=== PATIENT | male | born 1980 | race Caucasian/White ===

== ENCOUNTER 2018-02-21 18:17 | Emergency (ER) | payer SELFPAY ==
[2018-02-21 19:09] LABS: Absolute Lymphocytes (CBC) 2.6 K/uL (0.7-4.9); Absolute Monocytes 0.9 K/uL (0.1-1.3); Absolute Neutrophil 5.8 K/uL (1.8-8.0); Basophils % 0.5 % (0-1.3); Eosinophils % 0.3 % (0-4.4); Hematocrit 45.5 % (39.6-49.0); Lymphocytes % 28.1 % (15.3-44.8); MCH 30.9 pg (27.0-35.0); MCV 91.9 fL (80-100); MPV 9.1 fL (7.6-11.3); Monocytes % 9.1 % (3.3-12.3); RBC Red Blood Cell Count 4.95 M/uL (4.33-5.43)
[2018-02-21 19:15] LABS: Glucose Level 123 mg/dL (65-120)
[2018-02-21 19:16] LABS: Bicarbonate 31 mEq/L (21-31); Protime INR 1.28; Sodium Level 138 mEq/L (135-145)
[2018-02-21 19:17] LABS: ALT/SGPT 24 IU/L (10-60); AST/SGOT 24 IU/L (10-42); Albumin 4.9 g/dL (3.2-5.5); BUN Blood Urea Nitrogen 18 mg/dL (6-20); Bilirubin Total 0.6 mg/dL (0.3-1.2); Protein, Total 8.5 g/dL (6.0-8.3)
[2018-02-21] MEDS ORDERED: NA CHLORIDE 0.9% 1,000 ML ONE (19:20)
[2018-02-21 19:21] LABS: Alkaline Phosphatase 67 IU/L (42-121); Bilirubin Direct 0.1 mg/dL (0-0.2)
[2018-02-21 19:22] LABS: Alcohol Serum/Plasma < 10 mg/dl; Salicylates Level < 4.0 mg/dl (<30)
[2018-02-21 19:23] LABS: Barbiturates NEGATIVE; Benzodiazepines POSITIVE; Cocaine NEGATIVE; METHAMPHETAM NEGATIVE; Opiates POSITIVE; Phencyclidine NEGATIVE; THC Cannibis NEGATIVE
[2018-02-21 19:26] LABS: Urine Blood NEGATIVE (NEG); Urine Glucose NEGATIVE (NEG); Urine Protein 2+ (NEG); Urine Specific Gravity >1.030 (1.005-1.030); Urine pH 5.5 (5.0-7.0)
[2018-02-21] MEDS ORDERED: KCL 20 MEQ/100 mL IVPB 20 MEQ/100 ML BAG IV ONE (19:27)
[2018-02-21] MEDS ORDERED: POTASSIUM CL SA 10 MEQ TAB PO ONE (19:27)
--- NOTE | 2018-02-21 19:50 | RAD REPORT ---
EXAM DESCRIPTION: CT - Head Brain Wo Cont - 02/21/2018 7:38 pm CLINICAL HISTORY: Transient alteration of awareness. COMPARISON: None. TECHNIQUE: Axial 5 mm thick images of the head were obtained without IV contrast. All CT scans are performed using dose optimization technique as appropriate and may include automated exposure control or mA/KV adjustment according to patient size. FINDINGS: No intracranial hemorrhage, mass, edema or shift of mid-line structures. No acute infarcti on changes seen. No abnormal extra-axial fluid collections. Ventricles are normal. Mastoid air cells and visualized portions of the paranasal sinuses are clear. No acute bony findings. IMPRESSION: Negative non-contrast CT head examination.
--- NOTE | 2018-02-22 15:24 | EKG ---
Test Date: 2018-02-21 Test Time: 18:51:36 Er Nurse: KARLENE MEASUREMENT RESULTS: Intervals: Rate: 66 NC: 114 QRSD: 84 QT: 526 QTc: 551 [place]: P: 64 NC: 114 QRS: 52 T: 52 INTERPRETIVE STATEMENTS: Normal sinus rhythm Prolonged QT Abnormal ECG Compared to ECG 04/10/2016 17:17:20 Prolonged QT interval now present Electronically Signed On 02-22-18 15:23:23 CDT by Sanjay Sosa
--- NOTE | 2018-02-23 18:25 | EDPHYS ---
Physician Documentation [facility] Name: Som Clements Age: 37 yrs Sex: Male : 1980 Arrival Date: 02/21/2018 Time: 18:20 Bed 17 Private MD: None, None ED Physician Giacomo Khan HPI: 02/21 18:45 This 37 yrs old Male presents to ER via Ambulatory with complaints of Psych snw Problem, Suicidal Ideation. 18:45 The patient presents to the emergency department with depression, a history of a snw suicide gesture, suicide ideation, and the patient has a plan, to overdose with medications. Onset: The symptoms/episode began/occurred 1 week(s) ago, and became worse and became persistent. Past psychiatric history: Psychiatric medications include: has been on in the past but not for years, the patient has had a prior suicide gesture, where the patient took pills/meds, the patient has a previous inpatient psychiatric history, Selt[facility] wood? years ago, the patient's last psychiatric treatment was stopped meds weeks ago, pt states family has turned their backs on him until this improves. Associated signs and symptoms: Pertinent positives; anxiety, hallucinations, paranoia, suicide ideation. Severity of symptoms: At their worst the symptoms were moderate severe in the emergency department the symptoms are unchanged. The patient has experienced similar episodes in the past. The patient has not recently seen a physician. Long hx of auditory hallucinations and use of [facility]. Pt states he has not had visual hallucinations in the past. Historical: - Allergies: 18:27 NKDA; la1 - Home Meds: 18:32 unknown seizure med, has not taken in 3 weeks [Active]; hj - PMHx: 18:30 Bipolar disorder; bp - PSHx: 18:32 right knee; hj - Immunization history:: Adult Immunizations up to date. - Social history:: Smoking status: Patient/guardian denies using tobacco. ROS: 20:19 Constitutional: Negative for fever, chills, and weight loss, Eyes: Negative for injury, snw pain, redness, and discharge, ENT: Negative for injury, pain, and discharge, Neck: Negative for injury, pain, and swelling, Cardiovascular: Negative for chest pain, palpitations, and edema, Respiratory: Negative for shortness of breath, cough, wheezing, and pleuritic chest pain, Abdomen/GI: Negative for abdominal pain, nausea, vomiting, diarrhea, and constipation, Back: Negative for injury and pain, : Negative for injury, bleeding, discharge, and swelling, MS/Extremity: Negative for injury and deformity, Skin: Negative for injury, rash, and discoloration, Neuro: Negative for headache, weakness, numbness, tingling, and seizure. 20:19 Psych: Positive for auditory hallucinations, visual hallucinations, suicide gesture, suicidal ideation. Exam: 20:19 Constitutional: This is a well developed, well nourished patient who is awake, alert, snw and in no acute distress. Head/Face: Normocephalic, atraumatic. Eyes: Pupils equal round and reactive to light, extra-ocular motions intact. Lids and lashes normal. Conjunctiva and sclera are non-icteric and not injected. Cornea within normal limits. Periorbital areas with no swelling, redness, or edema. ENT: Nares patent. No nasal discharge, no septal abnormalities noted. Tympanic membranes are normal and external auditory canals are clear. Oropharynx with no redness, swelling, or masses, exudates, or evidence of obstruction, uvula midline. Mucous membranes moist. Neck: Trachea midline, no thyromegaly or masses palpated, and no cervical lymphadenopathy. Supple, full range of motion without nuchal rigidity, or vertebral point tenderness. No Meningismus. Chest/axilla: Normal chest wall appearance and motion. Nontender with no deformity. No lesions are appreciated. Cardiovascular: Regular rate and rhythm with a normal S1 and S2. No gallops, murmurs, or rubs. Normal PMI, no JVD. No pulse deficits. Respiratory: Lungs have equal breath sounds bilaterally, clear to auscultation and percussion. No rales, rhonchi or wheezes noted. No increased work of breathing, no retractions or nasal flaring. Abdomen/GI: Soft, non-tender, with normal bowel sounds. No distension or tympany. No guarding or rebound. No evidence of tenderness throughout. Back: No spinal tenderness. No costovertebral tenderness. Full range of motion. Skin: Warm, dry with normal turgor. Normal color with no rashes, no lesions, and no evidence of cellulitis. MS/ Extremity: Pulses equal, no cyanosis. Neurovascular intact. Full, normal range of motion. Neuro: Awake and alert, GCS 15, oriented to person, place, time, and situation. Cranial nerves II-XII grossly intact. Motor strength 5/5 in all extremities. Sensory grossly intact. Cerebellar exam normal. Normal gait. 20:19 Psych: Behavior/mood is cooperative, appropriate for age, Affect is calm, Oriented to person, place, time, Patient having thoughts of suicide. Plan for suicide is taking pills Judgement / Insight is impaired. Delusions/hallucinations are present and described as pt describes auditory and visual hallucinations. Vital Signs: 18:27 BP 121 / 90; Pulse 84; Resp 16; Temp 97.6; Pulse Ox 100% on R/A; Weight 72.57 kg; la1 Height 5 ft. 11 in. (180.34 cm); 02/22 00:00 BP 114 / 75; Pulse 55; Resp 14; Pulse Ox 100% ; bp 03:52 BP 114 / 66; Pulse 55; Resp 14; Pulse Ox 99% ; bp 07:14 BP 105 / 62; Pulse 65; Resp 18; Temp 97.7(O); Pulse Ox 100% on R/A; hj 11:19 BP 108 / 61; Pulse 64; Resp 18; Pulse Ox 100% on R/A; hj 15:00 BP 110 / 65; Pulse 67; Resp 18; Pulse Ox 100% on R/A; hj 17:41 BP 120 / 71; Pulse 64; Resp 18; Temp 98.1(TE); Pulse Ox 100% on R/A; hj 20:00 BP 110 / 70; Pulse 55; Resp 14; Pulse Ox 97% ; bp 14 00:00 BP 117 / 67; Pulse 58; Resp 16; Pulse Ox 95% ; vo1 04:17 BP 112 / 69; Pulse 55; Resp 14; Pulse Ox 97% ; bp 08:00 BP 107 / 60; Pulse 67; Resp 15; Temp 97.0(O); Pulse Ox 98% on R/A; mh5 12:00 BP 115 / 63; Pulse 61; Resp 12; Temp 97.0(O); Pulse Ox 97% on R/A; mh5 16:00 BP 116 / 75; Pulse 59; Resp 15; Temp 97.2(O); Pulse Ox 99% on R/A; mh5 02/21 18:27 Body Mass Index 22.32 (72.57 kg, 180.34 cm) la1 MDM: 02/21 18:33 Patient medically screened. regine 22:59 Data reviewed: vital signs, nurses notes. Data interpreted: Pulse oximetry: on room air snw is 100 %. Interpretation: normal. Counseling: I had a detailed discussion with the patient and/or guardian regarding: the historical points, exam findings, and any diagnostic results supporting the discharge/admit diagnosis, the presence of at least one elevated blood pressure reading (>120/80) during this emergency department visit. ED course: sleeping in no distress. Sitter at bedside. 02/22 02:27 Transition of care: After a detail discussion of the patient's case, care is snw transferred to Candido Marcus MD. 19:19 ED course: sleeping in no distress. snw 02/23 00:31 ED course: [facility] in to eval pt. snw 18:21 Physician consultation: Dr Kern was called at 18:00, was contacted at 18:00, regarding snw regarding transfer, [facility] Dr. Kern accepts pt in transfer post speaking with Dr. Khan. ED MD given report per me at 1820. Kindly states he will look for Mr. Clements. 02/21 18:34 Order name: Acetaminophen; Complete Time: 19:23 snw 02/21 18:34 Order name: Basic Metabolic Panel; Complete Time: 19:23 snw 02/21 18:34 Order name: CBC with Diff; Complete Time: 19:19 snw 02/21 18:34 Order name: ETOH Level; Complete Time: 19:23 snw 02/21 18:34 Order name: Hepatic Function; Complete Time: 19:23 snw 02/21 18:34 Order name: PT-INR; Complete Time: 19:19 snw 02/21 18:34 Order name: Ptt, Activated; Complete Time: 19:19 snw 02/21 18:34 Order name: Salicylate; Complete Time: 19:23 snw 02/21 18:34 Order name: Urine Drug Screen; Complete Time: 19:33 snw 02/21 19:17 Order name: Urine Dipstick--Ancillary (enter results); Complete Time: 19:33 rg2 02/21 19:19 Order name: CT Head Brain wo Cont; Complete Time: 19:53 snw 02/21 22:14 Order name: Potassium; Complete Time: 22:49 rg2 02/21 18:34 Order name: EKG; Complete Time: 18:34 snw 02/21 18:34 Order name: EKG - Nurse/Tech; Complete Time: 18:47 snw 02/21 18:34 Order name: IV Saline Lock; Complete Time: 18:44 snw 02/21 18:34 Order name: Labs collected and sent; Complete Time: 18:44 snw 02/21 18:34 Order name: Urine Dipstick-Ancillary (obtain specimen); Complete Time: 19:12 snw 02/22 07:40 Order name: Diet Regular; Complete Time: 07:40 02/23 07:04 Order name: Diet Regular; Complete Time: 07:04 2 02/23 10:11 Order name: Diet Regular; Complete Time: 10:11 5 02/23 14:41 Order name: Diet Regular; Complete Time: 14:42 5 02/23 16:03 Order name: Diet Regular; Complete Time: 16:04 5 Administered Medications: 02/21 19:23 Drug: NS 0.9% 1000 ml Route: IV; Rate: 1 bolus; Site: right antecubital; bp 19:32 Drug: Potassium Chloride 20 mEq Route: PO; bp 19:32 Follow up: Response: No adverse reaction bp 19:32 Drug: Potassium Chloride 20 mEq Route: IV; Rate: calculated rate; Site: right bp antecubital; Disposition: 02/24 08:58 Co-signature as Attending Physician, Giacomo Khan MD., cha Disposition: 02/23/18 18:24 Transfer ordered to [facility]. Diagnosis are Suicidal ideations, Suicide attempt. - Reason for transfer: Higher level of care. - Accepting physician is Dr. Kern. - Condition is Stable. - Problem is an acute exacerbation. - Symptoms are unchanged. Signatures: Dispatcher [employer] Giacomo Mosqueda MD MD cha Therrien, Shelly, CLUB STEWARD-C CLUB STEWARD-Csnw Chacho Estrada RN RN la1 Ashu Frazier RN RN hj Paris Rosales RN RN tw2 Vasquez Mcmillan RN RN bp Corrections: (The following items were deleted from the chart) 02/22 03:56 02/21 18:27 PMHx: Seizures; la1 bp 02/22 04:31 02/21 22:24 POTASSIUM+C.LAB.BRZ ordered. EDMS EDMS 02/23 18:47 18:24 02/23/2018 18:24 Transfer ordered to Psych Facility. Diagnosis is Suicidal tw2 ideations; Suicide attempt. Reason for transfer: Higher level of care. Accepting physician is Dr. Kern. Condition is Stable. Problem is an acute exacerbation. Symptoms are unchanged. snw
--- NOTE | 2018-02-23 18:25 | ER ---
Nurse's Notes [facility] Name: Som Clements Age: 37 yrs Sex: Male : 1980 Arrival Date: 02/21/2018 Time: 18:20 Bed 17 Private MD: None, None Diagnosis: Suicidal ideations;Suicide attempt Presentation: 02/21 18:25 Presenting complaint: Patient states: I am a patient of [facility] and I have been having a la1 bad month, I tried to kill myself 3 times this week, last night I took 200 benadryl and this week I have probably taken 500 of them. Pt reports visual and auditory hallucinations. Presenting complaint:. Transition of care: patient was not received from another setting of care. Onset of symptoms was February 21, 2018. Initial Sepsis Screen: Does the patient meet any 2 criteria? No. Patient's initial sepsis screen is negative. Does the patient have a suspected source of infection? No. Patient's initial sepsis screen is negative. Care prior to arrival: None. 18:25 Method Of Arrival: Ambulatory la1 18:25 Acuity: TA 2 la1 Triage Assessment: 18:31 General: Appears in no apparent distress. uncomfortable, Behavior is calm, cooperative, hj appropriate for age. Pain: Denies pain. Historical: - Allergies: 18:27 NKDA; la1 - Home Meds: 18:32 unknown seizure med, has not taken in 3 weeks [Active]; hj - PMHx: 18:30 Bipolar disorder; bp - PSHx: 18:32 right knee; hj - Immunization history:: Adult Immunizations up to date. - Social history:: Smoking status: Patient/guardian denies using tobacco. Screenin:31 Abuse screen: Denies threats or abuse. Denies injuries from another. Nutritional hj screening: No deficits noted. Tuberculosis screening: No symptoms or risk factors identified. Fall Risk None identified. Assessment: 18:34 General: Appears in no apparent distress. uncomfortable, Behavior is calm, cooperative, hj appropriate for age. General: Reports auditory and visual hallucinations; my neighbors says "i am talking to braiding machine tender which are not really present at 2:30am, at one point im thinking about trying to hurt others, because my family doesn't want to talk to me because of my mental condition:. Pain: Denies pain. Neuro: Level of Consciousness is awake, alert, obeys commands, Oriented to person, place, time, situation, Appropriate for age. Cardiovascular: Capillary refill < 3 seconds Patient's skin is warm and dry. Respiratory: Airway is patent Respiratory effort is even, unlabored, Respiratory pattern is regular, symmetrical. GI: No signs and/or symptoms were reported involving the gastrointestinal system. : No signs and/or symptoms were reported regarding the genitourinary system. EENT: Derm: Musculoskeletal: No signs and/or symptoms reported regarding the musculoskeletal system. 18:51 Reassessment: tried calling position control [phone]: spoke with Crystal; with pt hj history of seizure, take EKG, watch for wide QRS, and if the QRS is wider than 100, give Bicarb and fluids; do the tox screen and poison control will call back in few hours; case #: [id number];. 19:00 Reassessment: RECD REPORT FROM AIDEN CULLEN. 37YO WM P/W SI AND SUPPOSED DIPHENHYDRAMINE bp OD. PT ASSERTS THAT HE HAS TAKEN >600 TABLETS OF BENADRYL OVER THE LAST WEEK A SUICIDAL GESTURE. SR WITH NORMAL QRS NOTED ON EKG. SITTER AT B/S, POISON CONTROL CONTACTED BY PREVIOUS SHIFT. 19:33 Reassessment: PT TO CT WITH SITTER AND HAT BRIM CURLER. bp 21:00 Reassessment: SITTER AT B/S, REPEAT K LEVEL PENDING. PT RESTING QUIETLY. bp 23:00 Reassessment: PT RESTING QUIETLY, MEDICALLY CLEARED. INPATIENT PSYCH TRANSFER PENDING. bp 02/22 00:01 Reassessment: PT RESTING QUIETLY, SITTER AT B/S. PSYCH PLACEMENT PENDING. bp 02:05 Reassessment: PT SLEEPING, SITTER AT B/S. PSYCH TRANSFER REMAINS IN PROCESS. bp 03:51 Reassessment: PT SLEEPING. NO APPARENT DISTRESS. SITTER AT B/S. PSYCH TRANSFER STILL IN bp PROCESS. 07:06 General: Appears in no apparent distress. comfortable, Behavior is calm, cooperative, hj appropriate for age. Pain: Denies pain. Neuro: Level of Consciousness is awake, alert, obeys commands, Oriented to person, place, time, situation, Appropriate for age. Cardiovascular: Capillary refill < 3 seconds Patient's skin is warm and dry. Respiratory: Airway is patent Respiratory effort is even, unlabored, Respiratory pattern is regular, symmetrical. GI: No signs and/or symptoms were reported involving the gastrointestinal system. : No signs and/or symptoms were reported regarding the genitourinary system. EENT: No signs and/or symptoms were reported regarding the EENT system. Derm: No signs and/or symptoms reported regarding the dermatologic system. Musculoskeletal: No signs and/or symptoms reported regarding the musculoskeletal system. 09:08 Reassessment: resting comfortably, provided breakfast tray; no other concerns;. hj 16:00 Reassessment: assisted to the bathroom;. hj 16:59 Reassessment: [facility] reports no beds at this time. iw 18:53 Reassessment: Patient and/or family updated on plan of care and expected duration. Pain hj level reassessed. Patient is alert, oriented x 3, equal unlabored respirations, skin warm/dry/pink. no further concerns;. 19:00 Reassessment: RECD REPORT FROM AIDEN CULLEN. 37YO WM P/W SI AND ALLEGED INGESTION. PT bp MEDICALLY CLEARED. NO CURRENT ORDERS. SITTER AT B/S. 02/23 00:15 Reassessment: PT RESTING QUIETLY, SITTER AT B/S. NO FURTHER ORDERS OR MEDICAL NEEDS AT bp THIS TIME. 00:31 Reassessment: [employer] [facility] SCRE[facility] AT B/S. bp 01:07 Reassessment: [facility] SCREENING COMPLETED. PT FAMILIAR WITH [facility], CHRONIC H/O bp SUICIDAL IDEATION WHEN HOMELESS. PT NOW ADMITTING RECENT RELEASE FROM INCARCERATION AND CURRENT STATE OF HOMELESSNESS. PT AGITATED WITH [employer] COAST SCREENER'S INABILITY TO FIND HIM A CONVENIENT LIVING ARRANGEMENT, STATING THIS PRIMARY MOTIVATION. 04:20 Reassessment: PT SLEEPING, NO ACUTE FINDINGS AT THIS TIME. bp 07:00 Reassessment: Patient appears in no apparent distress at this time. Patient and/or tw2 family updated on plan of care and expected duration. Pain level reassessed. Patient is alert, oriented x 3, equal unlabored respirations, skin warm/dry/pink. see observation notes. 08:00 Reassessment: Patient appears in no apparent distress at this time. Patient and/or tw2 family updated on plan of care and expected duration. Pain level reassessed. Patient is alert, oriented x 3, equal unlabored respirations, skin warm/dry/pink. 09:00 Reassessment: Patient appears in no apparent distress at this time. Patient and/or tw2 family updated on plan of care and expected duration. Pain level reassessed. Patient is alert, oriented x 3, equal unlabored respirations, skin warm/dry/pink. 09:59 Reassessment: Patient appears in no apparent distress at this time. Patient and/or tw2 family updated on plan of care and expected duration. Pain level reassessed. Patient is alert, oriented x 3, equal unlabored respirations, skin warm/dry/pink. 11:00 Reassessment: Patient appears in no apparent distress at this time. Patient is alert, tw2 oriented x 3, equal unlabored respirations, skin warm/dry/pink. 12:00 Reassessment: Patient appears in no apparent distress at this time. Patient and/or tw2 family updated on plan of care and expected duration. Pain level reassessed. Patient is alert, oriented x 3, equal unlabored respirations, skin warm/dry/pink. 13:00 Reassessment: Patient appears in no apparent distress at this time. Patient and/or tw2 family updated on plan of care and expected duration. Pain level reassessed. Patient is alert, oriented x 3, equal unlabored respirations, skin warm/dry/pink. 14:01 Reassessment: Patient appears in no apparent distress at this time. Patient and/or tw2 family updated on plan of care and expected duration. Pain level reassessed. Patient is alert, oriented x 3, equal unlabored respirations, skin warm/dry/pink. 15:00 Reassessment: Patient appears in no apparent distress at this time. Patient and/or tw2 family updated on plan of care and expected duration. Pain level reassessed. Patient is alert, oriented x 3, equal unlabored respirations, skin warm/dry/pink. 16:00 Reassessment: Patient appears in no apparent distress at this time. Patient and/or tw2 family updated on plan of care and expected duration. Pain level reassessed. Patient is alert, oriented x 3, equal unlabored respirations, skin warm/dry/pink. 17:00 Reassessment: Patient appears in no apparent distress at this time. Patient and/or tw2 family updated on plan of care and expected duration. Pain level reassessed. Patient is alert, oriented x 3, equal unlabored respirations, skin warm/dry/pink. 18:00 Reassessment: Patient appears in no apparent distress at this time. Patient and/or tw2 family updated on plan of care and expected duration. Pain level reassessed. Patient is alert, oriented x 3, equal unlabored respirations, skin warm/dry/pink. 18:45 Reassessment: Patient appears in no apparent distress at this time. Patient and/or tw2 family updated on plan of care and expected duration. Pain level reassessed. Patient is alert, oriented x 3, equal unlabored respirations, skin warm/dry/pink. Psych: 02/21 18:27 Subjective: Patient's mood is sad, Delusions are persecutory, Hallucinations are la1 auditory, visual, Having thoughts of suicide. Objective: Patient is cooperative, Speech is normal. Interventions: Removed personal items and placed in bag. Suicide Risk Assessment: Sad Person Scale: Sex of patient: Male: Score 1 point. Age of patient: Score 0 point if patient falls outside of specified age parameters. Depression: Score 1 point if signs of depression are present. Previous Attempt: Score 1 point if patient has previously attempted suicide. Substance Abuse: Score 0 point if patient does not abuse alcohol or drugs. Rational Thinking: Score 1 point if patient is lacking rational thinking. Social Support: Score 1 point if social support is lacking and/or unavailable. Organized Plan: Score 1 point if patient had a plan in place. Relationship: Score 1 point if patient is , , , or for a single male Chronic Sickness: Score 1 point if patient has illness, chronic, debilitating, or severe. TOTAL POINTS: If total points are 7-10, the proposed clinical action is to hospitalize or commit. Implement suicide precautions. Safety Checks: Personal items have been removed. Door is open. No visitors are present at this time. Pt denies substance abuse. Commitment: Patient will be a voluntary commitment. 19:00 Safety Checks: Personal items have been removed. Door is open. No visitors are present bp at this time. 19:15 Safety Checks: Personal items have been removed. Door is open. No visitors are present bp at this time. 19:30 Safety Checks: Personal items have been removed. Door is open. No visitors are present bp at this time. 19:45 Safety Checks: Personal items have been removed. Door is open. No visitors are present bp at this time. 20:00 Safety Checks: Personal items have been removed. Door is open. No visitors are present bp at this time. 20:15 Safety Checks: Personal items have been removed. Door is open. No visitors are present bp at this time. 20:30 Safety Checks: Personal items have been removed. Door is open. No visitors are present bp at this time. 20:45 Safety Checks: Personal items have been removed. Door is open. No visitors are present bp at this time. 21:00 Safety Checks: Personal items have been removed. Door is open. No visitors are present bp at this time. 21:15 Safety Checks: Personal items have been removed. Door is open. No visitors are present bp at this time. 21:30 Safety Checks: Personal items have been removed. Door is open. No visitors are present bp at this time. 21:45 Safety Checks: Personal items have been removed. Door is open. No visitors are present bp at this time. 22:00 Safety Checks: Personal items have been removed. Door is open. No visitors are present bp at this time. 22:15 Safety Checks: Personal items have been removed. Door is open. No visitors are present bp at this time. 22:30 Safety Checks: Personal items have been removed. Door is open. No visitors are present bp at this time. 22:45 Safety Checks: Personal items have been removed. Door is open. No visitors are present bp at this time. 23:00 Safety Checks: Personal items have been removed. Door is open. No visitors are present bp at this time. 23:15 Safety Checks: Personal items have been removed. Door is open. No visitors are present bp at this time. 23:30 Safety Checks: Personal items have been removed. Door is open. No visitors are present bp at this time. 23:45 Safety Checks: Personal items have been removed. Door is open. No visitors are present bp at this time. 02/22 00:00 Safety Checks: Personal items have been removed. Door is open. No visitors are present bp at this time. 00:15 Safety Checks: Personal items have been removed. Door is open. No visitors are present bp at this time. 00:30 Safety Checks: Personal items have been removed. Door is open. No visitors are present bp at this time. 00:45 Safety Checks: Personal items have been removed. Door is open. No visitors are present bp at this time. 01:00 Safety Checks: Personal items have been removed. Door is open. No visitors are present bp at this time. 01:15 Safety Checks: Personal items have been removed. Door is open. No visitors are present bp at this time. 01:30 Safety Checks: Personal items have been removed. Door is open. No visitors are present bp at this time. 01:45 Safety Checks: Personal items have been removed. Door is open. No visitors are present bp at this time. 02:00 Safety Checks: Personal items have been removed. Door is open. No visitors are present bp at this time. 02:15 Safety Checks: Personal items have been removed. Door is open. No visitors are present bp at this time. 02:30 Safety Checks: Personal items have been removed. Door is open. No visitors are present bp at this time. 02:45 Safety Checks: Personal items have been removed. Door is open. No visitors are present bp at this time. 03:00 Safety Checks: Personal items have been removed. Door is open. No visitors are present bp at this time. 03:15 Safety Checks: Personal items have been removed. Door is open. No visitors are present bp at this time. 03:30 Safety Checks: Personal items have been removed. Door is open. No visitors are present bp at this time. 03:45 Safety Checks: Personal items have been removed. Door is open. No visitors are present bp at this time. 04:00 Safety Checks: Personal items have been removed. Door is open. No visitors are present bp at this time. 04:15 Safety Checks: Personal items have been removed. Door is open. No visitors are present bp at this time. 04:30 Safety Checks: Personal items have been removed. Door is open. No visitors are present bp at this time. 04:45 Safety Checks: Personal items have been removed. Door is open. No visitors are present bp at this time. 05:00 Safety Checks: Personal items have been removed. Door is open. No visitors are present bp at this time. 05:15 Safety Checks: Personal items have been removed. Door is open. No visitors are present bp at this time. 05:30 Safety Checks: Personal items have been removed. Door is open. No visitors are present bp at this time. 05:45 Safety Checks: Personal items have been removed. Door is open. No visitors are present bp at this time. 06:00 Safety Checks: Personal items have been removed. Door is open. No visitors are present bp at this time. 06:15 Safety Checks: Personal items have been removed. Door is open. No visitors are present bp at this time. 06:30 Safety Checks: Personal items have been removed. Door is open. No visitors are present bp at this time. 06:45 Safety Checks: Personal items have been removed. Door is open. No visitors are present bp at this time. 07:00 Safety Checks: Personal items have been removed. Door is open. No visitors are present bp at this time. Vital Signs: 02/21 18:27 BP 121 / 90; Pulse 84; Resp 16; Temp 97.6; Pulse Ox 100% on R/A; Weight 72.57 kg; la1 Height 5 ft. 11 in. (180.34 cm); 02/22 00:00 BP 114 / 75; Pulse 55; Resp 14; Pulse Ox 100% ; bp 03:52 BP 114 / 66; Pulse 55; Resp 14; Pulse Ox 99% ; bp 07:14 BP 105 / 62; Pulse 65; Resp 18; Temp 97.7(O); Pulse Ox 100% on R/A; hj 11:19 BP 108 / 61; Pulse 64; Resp 18; Pulse Ox 100% on R/A; hj 15:00 BP 110 / 65; Pulse 67; Resp 18; Pulse Ox 100% on R/A; hj 17:41 BP 120 / 71; Pulse 64; Resp 18; Temp 98.1(TE); Pulse Ox 100% on R/A; hj 20:00 BP 110 / 70; Pulse 55; Resp 14; Pulse Ox 97% ; bp 0514 00:00 BP 117 / 67; Pulse 58; Resp 16; Pulse Ox 95% ; vo1 04:17 BP 112 / 69; Pulse 55; Resp 14; Pulse Ox 97% ; bp 08:00 BP 107 / 60; Pulse 67; Resp 15; Temp 97.0(O); Pulse Ox 98% on R/A; mh5 12:00 BP 115 / 63; Pulse 61; Resp 12; Temp 97.0(O); Pulse Ox 97% on R/A; mh5 16:00 BP 116 / 75; Pulse 59; Resp 15; Temp 97.2(O); Pulse Ox 99% on R/A; mh5 02/21 18:27 Body Mass Index 22.32 (72.57 kg, 180.34 cm) la1 ED Course: 02/21 18:20 Patient arrived in ED. mr 18:20 None, None is Private Physician. mr 18:27 Triage completed. la1 18:27 Arm band placed on left wrist. la1 18:30 Aiden Frazier RN is Primary Nurse. hj 18:32 Patient has correct armband on for positive identification. Placed in gown. Bed in low hj position. Call light in reach. Side rails up X 1. 18:33 Odalis Doherty [facility]-C [facility]. snw 18:33 Giacomo Khan MD is Attending Physician. snw 18:33 Safety Checks: Personal items have been removed personal item at nurses station; The hj door is open or patient has been placed in a hallway bed/chair. There are no family/friend visitors at this time. 18:45 Initial lab(s) drawn, by me, sent to lab. Inserted saline lock: 20 gauge in right hj antecubital area, using aseptic technique. Blood collected. 18:51 EKG done, by ED staff, reviewed by Odalis MURRAY. eb 19:07 Primary Nurse role handed off by Aiden Frazier RN bp 19:07 Vasquez Mcmillan, SUBHASH is Primary Nurse. bp 19:09 Urine collected: clean catch specimen. eb 19:38 CT Head Brain wo Cont In Process Unspecified. EDMS 02/22 06:58 Attending Physician role handed off by Giacomo Khan MD va 06:58 Sang Verde MD is Attending Physician. wa 07:00 Safety Checks: Personal items have been removed The door is open or patient has been hj placed in a hallway bed/chair. There are no family/friend visitors at this time. 07:15 Safety Checks: Personal items have been removed The door is open or patient has been hj placed in a hallway bed/chair. There are no family/friend visitors at this time. 07:30 Safety Checks: Personal items have been removed The door is open or patient has been hj placed in a hallway bed/chair. There are no family/friend visitors at this time. 07:45 Safety Checks: Personal items have been removed The door is open or patient has been hj placed in a hallway bed/chair. There are no family/friend visitors at this time. 08:00 Safety Checks: Personal items have been removed The door is open or patient has been hj placed in a hallway bed/chair. There are no family/friend visitors at this time. 08:15 Safety Checks: Personal items have been removed The door is open or patient has been hj placed in a hallway bed/chair. There are no family/friend visitors at this time. 08:30 Safety Checks: Personal items have been removed The door is open or patient has been hj placed in a hallway bed/chair. There are no family/friend visitors at this time. 08:45 Safety Checks: Personal items have been removed The door is open or patient has been hj placed in a hallway bed/chair. There are no family/friend visitors at this time. 09:00 Safety Checks: Personal items have been removed The door is open or patient has been hj placed in a hallway bed/chair. There are no family/friend visitors at this time. 09:15 Safety Checks: Personal items have been removed The door is open or patient has been hj placed in a hallway bed/chair. There are no family/friend visitors at this time. 09:30 Safety Checks: Personal items have been removed The door is open or patient has been hj placed in a hallway bed/chair. There are no family/friend visitors at this time. 09:45 Safety Checks: Personal items have been removed The door is open or patient has been hj placed in a hallway bed/chair. There are no family/friend visitors at this time. 10:00 Safety Checks: Personal items have been removed The door is open or patient has been hj placed in a hallway bed/chair. There are no family/friend visitors at this time. 10:15 Safety Checks: Personal items have been removed The door is open or patient has been hj placed in a hallway bed/chair. There are no family/friend visitors at this time. 10:30 Safety Checks: Personal items have been removed The door is open or patient has been hj placed in a hallway bed/chair. There are no family/friend visitors at this time. 10:45 Safety Checks: Personal items have been removed The door is open or patient has been hj placed in a hallway bed/chair. There are no family/friend visitors at this time. 11:00 Safety Checks: Personal items have been removed The door is open or patient has been hj placed in a hallway bed/chair. There are no family/friend visitors at this time. 11:15 Safety Checks: Personal items have been removed The door is open or patient has been hj placed in a hallway bed/chair. There are no family/friend visitors at this time. 11:30 Safety Checks: Personal items have been removed The door is open or patient has been hj placed in a hallway bed/chair. There are no family/friend visitors at this time. 12:00 Safety Checks: Personal items have been removed The door is open or patient has been hj placed in a hallway bed/chair. There are no family/friend visitors at this time. 12:15 Safety Checks: Personal items have been removed The door is open or patient has been hj placed in a hallway bed/chair. There are no family/friend visitors at this time. 12:30 Safety Checks: Personal items have been removed The door is open or patient has been hj placed in a hallway bed/chair. There are no family/friend visitors at this time. 12:45 Safety Checks: Personal items have been removed The door is open or patient has been hj placed in a hallway bed/chair. There are no family/friend visitors at this time. 13:00 Safety Checks: Personal items have been removed The door is open or patient has been hj placed in a hallway bed/chair. There are no family/friend visitors at this time. 13:15 Safety Checks: Personal items have been removed The door is open or patient has been hj placed in a hallway bed/chair. There are no family/friend visitors at this time. 13:30 Safety Checks: Personal items have been removed The door is open or patient has been hj placed in a hallway bed/chair. There are no family/friend visitors at this time. 13:45 Safety Checks: Personal items have been removed The door is open or patient has been hj placed in a hallway bed/chair. There are no family/friend visitors at this time. 14:00 Safety Checks: Personal items have been removed The door is open or patient has been hj placed in a hallway bed/chair. There are no family/friend visitors at this time. 14:15 Safety Checks: Personal items have been removed The door is open or patient has been hj placed in a hallway bed/chair. There are no family/friend visitors at this time. 14:30 Safety Checks: Personal items have been removed The door is open or patient has been hj placed in a hallway bed/chair. There are no family/friend visitors at this time. 14:45 Safety Checks: Personal items have been removed The door is open or patient has been hj placed in a hallway bed/chair. There are no family/friend visitors at this time. 15:00 Safety Checks: Personal items have been removed The door is open or patient has been hj placed in a hallway bed/chair. There are no family/friend visitors at this time. 15:15 Safety Checks: Personal items have been removed The door is open or patient has been hj placed in a hallway bed/chair. There are no family/friend visitors at this time. 15:30 Safety Checks: Personal items have been removed The door is open or patient has been hj placed in a hallway bed/chair. There are no family/friend visitors at this time. 15:45 Safety Checks: Personal items have been removed The door is open or patient has been hj placed in a hallway bed/chair. There are no family/friend visitors at this time. 16:00 Safety Checks: Personal items have been removed The door is open or patient has been hj placed in a hallway bed/chair. There are no family/friend visitors at this time. 16:15 Safety Checks: Personal items have been removed The door is open or patient has been hj placed in a hallway bed/chair. There are no family/friend visitors at this time. 16:26 Patient demographics and clinicals were refaxed to all facilities. ag 16:30 Safety Checks: Personal items have been removed The door is open or patient has been hj placed in a hallway bed/chair. There are no family/friend visitors at this time. 16:45 Safety Checks: Personal items have been removed The door is open or patient has been hj placed in a hallway bed/chair. There are no family/friend visitors at this time. 17:00 Safety Checks: Personal items have been removed The door is open or patient has been hj placed in a hallway bed/chair. There are no family/friend visitors at this time. 17:15 Safety Checks: Personal items have been removed The door is open or patient has been hj placed in a hallway bed/chair. The door is not opened, nor is patient placed in a hallway bed/chair. 17:30 Safety Checks: Personal items have been removed The door is open or patient has been hj placed in a hallway bed/chair. There are no family/friend visitors at this time. 17:45 Safety Checks: Personal items have been removed The door is open or patient has been hj placed in a hallway bed/chair. There are no family/friend visitors at this time. 18:00 Safety Checks: Personal items have been removed The door is open or patient has been hj placed in a hallway bed/chair. There are no family/friend visitors at this time. 18:15 Safety Checks: Personal items have been removed The door is open or patient has been hj placed in a hallway bed/chair. There are no family/friend visitors at this time. 18:30 Safety Checks: Personal items have been removed The door is open or patient has been hj placed in a hallway bed/chair. There are no family/friend visitors at this time. 18:45 Safety Checks: Personal items have been removed The door is open or patient has been hj placed in a hallway bed/chair. There are no family/friend visitors at this time. 19:00 Safety Checks: Personal items have been removed The door is open or patient has been bp placed in a hallway bed/chair. There are no family/friend visitors at this time. 19:00 Safety checks: Items removed: yes. Door open/sign placed on door: yes. Family/friend cc1 present: no. 19:15 Safety Checks: Personal items have been removed The door is open or patient has been bp placed in a hallway bed/chair. There are no family/friend visitors at this time. 19:15 Safety checks: Items removed: yes. Door open/sign placed on door: yes. Family/friend cc1 present: no. 19:30 Safety Checks: Personal items have been removed The door is open or patient has been bp placed in a hallway bed/chair. There are no family/friend visitors at this time. 19:30 Safety checks: Items removed: yes. Door open/sign placed on door: yes. Family/friend cc1 present: no. 19:45 Safety Checks: Personal items have been removed The door is open or patient has been bp placed in a hallway bed/chair. There are no family/friend visitors at this time. 19:45 Safety checks: Items removed: yes. Door open/sign placed on door: yes. Family/friend cc1 present: no. 20:00 Safety Checks: Personal items have been removed The door is open or patient has been bp placed in a hallway bed/chair. There are no family/friend visitors at this time. 20:00 Safety checks: Items removed: yes. Door open/sign placed on door: yes. Family/friend cc1 present: no. 20:15 Safety Checks: Personal items have been removed The door is open or patient has been bp placed in a hallway bed/chair. There are no family/friend visitors at this time. 20:15 Safety checks: Items removed: yes. Door open/sign placed on door: yes. Family/friend cc1 present: no. 20:30 Safety Checks: Personal items have been removed The door is open or patient has been bp placed in a hallway bed/chair. There are no family/friend visitors at this time. 20:30 Safety checks: Items removed: yes. Door open/sign placed on door: yes. Family/friend cc1 present: no. 20:45 Safety Checks: Personal items have been removed The door is open or patient has been bp placed in a hallway bed/chair. There are no family/friend visitors at this time. 20:45 Safety checks: Items removed: yes. Door open/sign placed on door: yes. Family/friend cc1 present: no. 21:00 Safety Checks: Personal items have been removed The door is open or patient has been bp placed in a hallway bed/chair. There are no family/friend visitors at this time. 21:00 Safety checks: Items removed: yes. Door open/sign placed on door: yes. Family/friend cc1 present: no. 21:15 Safety Checks: Personal items have been removed The door is open or patient has been bp placed in a hallway bed/chair. There are no family/friend visitors at this time. 21:15 Safety checks: Items removed: yes. Door open/sign placed on door: yes. Family/friend vo1 present: no. 21:17 [facility] called at 21:03 on 02/22/18 and cannot accept the pt. mw2 21:30 Safety Checks: Personal items have been removed The door is open or patient has been bp placed in a hallway bed/chair. There are no family/friend visitors at this time. 21:30 Safety checks: Items removed: yes. Door open/sign placed on door: yes. Family/friend vo1 present: no. 21:45 Safety Checks: Personal items have been removed The door is open or patient has been bp placed in a hallway bed/chair. There are no family/friend visitors at this time. 21:45 Safety checks: Items removed: yes. Door open/sign placed on door: yes. Family/friend vo1 present: no. 22:00 Safety Checks: Personal items have been removed The door is open or patient has been bp placed in a hallway bed/chair. There are no family/friend visitors at this time. 22:00 Safety checks: Items removed: yes. Door open/sign placed on door: yes. Family/friend cc1 present: no. 22:15 Safety Checks: Personal items have been removed The door is open or patient has been bp placed in a hallway bed/chair. There are no family/friend visitors at this time. 22:15 Safety checks: Items removed: yes. Door open/sign placed on door: yes. Family/friend vo1 present: no. 22:30 Safety Checks: Personal items have been removed The door is open or patient has been bp placed in a hallway bed/chair. There are no family/friend visitors at this time. 22:30 Safety checks: Items removed: yes. Door open/sign placed on door: yes. Family/friend vo1 present: no. 22:45 Safety Checks: Personal items have been removed The door is open or patient has been bp placed in a hallway bed/chair. There are no family/friend visitors at this time. 22:45 Safety checks: Items removed: yes. Door open/sign placed on door: yes. Family/friend vo1 present: no. 23:00 Safety Checks: Personal items have been removed The door is open or patient has been bp placed in a hallway bed/chair. There are no family/friend visitors at this time. 23:00 Safety checks: Items removed: yes. Door open/sign placed on door: yes. Family/friend vo1 present: no. 23:15 Safety Checks: Personal items have been removed The door is open or patient has been bp placed in a hallway bed/chair. There are no family/friend visitors at this time. 23:15 Safety checks: Items removed: yes. Door open/sign placed on door: yes. Family/friend vo1 present: no. 23:30 Safety Checks: Personal items have been removed The door is open or patient has been bp placed in a hallway bed/chair. There are no family/friend visitors at this time. 23:30 Safety checks: Items removed: yes. Door open/sign placed on door: yes. Family/friend vo1 present: no. 23:45 Safety Checks: Personal items have been removed The door is open or patient has been bp placed in a hallway bed/chair. There are no family/friend visitors at this time. 23:45 Safety checks: Items removed: yes. Door open/sign placed on door: yes. Family/friend vo1 present: no. 02/23 00:00 Safety Checks: Personal items have been removed The door is open or patient has been bp placed in a hallway bed/chair. There are no family/friend visitors at this time. 00:00 Safety checks: Items removed: yes. Door open/sign placed on door: yes. Family/friend vo1 present: no. 00:15 Safety Checks: Personal items have been removed The door is open or patient has been bp placed in a hallway bed/chair. There are no family/friend visitors at this time. 00:15 Safety checks: Items removed: yes. Door open/sign placed on door: yes. Family/friend vo1 present: no. 00:30 Safety Checks: Personal items have been removed The door is open or patient has been bp placed in a hallway bed/chair. There are no family/friend visitors at this time. 00:30 Safety checks: Items removed: yes. Door open/sign placed on door: yes. Family/friend vo1 present: no. 00:45 Safety Checks: Personal items have been removed The door is open or patient has been bp placed in a hallway bed/chair. There are no family/friend visitors at this time. 00:45 Safety checks: Items removed: yes. Door open/sign placed on door: yes. Family/friend vo1 present: no. 01:00 Safety Checks: Personal items have been removed The door is open or patient has been bp placed in a hallway bed/chair. There are no family/friend visitors at this time. 01:00 Safety checks: Items removed: yes. Door open/sign placed on door: yes. Family/friend vo1 present: no. 01:15 Safety Checks: Personal items have been removed The door is open or patient has been bp placed in a hallway bed/chair. There are no family/friend visitors at this time. 01:15 Safety checks: Items removed: yes. Door open/sign placed on door: yes. Family/friend vo1 present: no. 01:30 Safety Checks: Personal items have been removed The door is open or patient has been bp placed in a hallway bed/chair. There are no family/friend visitors at this time. 01:30 Safety checks: Items removed: yes. Door open/sign placed on door: yes. Family/friend vo1 present: no. 01:45 Safety Checks: Personal items have been removed The door is open or patient has been bp placed in a hallway bed/chair. There are no family/friend visitors at this time. 01:45 Safety checks: Items removed: yes. Door open/sign placed on door: yes. Family/friend vo1 present: no. 02:00 Safety Checks: Personal items have been removed The door is open or patient has been bp placed in a hallway bed/chair. There are no family/friend visitors at this time. 02:00 Safety checks: Items removed: yes. Door open/sign placed on door: yes. Family/friend vo1 present: no. 02:15 Safety Checks: Personal items have been removed The door is open or patient has been bp placed in a hallway bed/chair. There are no family/friend visitors at this time. 02:15 Safety checks: Items removed: yes. Door open/sign placed on door: yes. Family/friend vo1 present: no. 02:30 Safety Checks: Personal items have been removed The door is open or patient has been bp placed in a hallway bed/chair. There are no family/friend visitors at this time. 02:30 Safety checks: Items removed: yes. Door open/sign placed on door: yes. Family/friend vo1 present: no. 02:45 Safety Checks: Personal items have been removed The door is open or patient has been bp placed in a hallway bed/chair. There are no family/friend visitors at this time. 02:45 Safety checks: Items removed: yes. Door open/sign placed on door: yes. Family/friend vo1 present: no. 03:00 Safety Checks: Personal items have been removed The door is open or patient has been bp placed in a hallway bed/chair. There are no family/friend visitors at this time. 03:00 Safety checks: Items removed: yes. Door open/sign placed on door: yes. Family/friend vo1 present: no. 03:08 [facility] called 02/23/18 at 03:07 and stated they do not have any beds available. mw2 03:15 Safety Checks: Personal items have been removed The door is open or patient has been bp placed in a hallway bed/chair. There are no family/friend visitors at this time. 03:15 Safety checks: Items removed: yes. Door open/sign placed on door: yes. Family/friend vo1 present: no. 03:30 Safety Checks: Personal items have been removed The door is open or patient has been bp placed in a hallway bed/chair. There are no family/friend visitors at this time. 03:30 Safety checks: Items removed: yes. Door open/sign placed on door: yes. Family/friend vo1 present: no. 03:45 Safety Checks: Personal items have been removed The door is open or patient has been bp placed in a hallway bed/chair. There are no family/friend visitors at this time. 03:45 Safety checks: Items removed: yes. Door open/sign placed on door: yes. Family/friend vo1 present: no. 04:00 Safety Checks: Personal items have been removed The door is open or patient has been bp placed in a hallway bed/chair. There are no family/friend visitors at this time. 04:00 Safety checks: Items removed: yes. Door open/sign placed on door: yes. Family/friend vo1 present: no. 04:15 Safety Checks: Personal items have been removed The door is open or patient has been bp placed in a hallway bed/chair. There are no family/friend visitors at this time. 04:15 Safety checks: Items removed: yes. Door open/sign placed on door: yes. Family/friend vo1 present: no. 04:30 Safety Checks: Personal items have been removed The door is open or patient has been bp placed in a hallway bed/chair. There are no family/friend visitors at this time. 04:30 Safety checks: Items removed: yes. Door open/sign placed on door: yes. Family/friend vo1 present: no. 04:45 Safety Checks: Personal items have been removed The door is open or patient has been bp placed in a hallway bed/chair. There are no family/friend visitors at this time. 04:45 Safety checks: Items removed: yes. Door open/sign placed on door: yes. Family/friend vo1 present: no. 05:00 Safety Checks: Personal items have been removed The door is open or patient has been bp placed in a hallway bed/chair. There are no family/friend visitors at this time. 05:00 Safety checks: Items removed: yes. Door open/sign placed on door: yes. Family/friend vo1 present: no. 05:15 Safety Checks: Personal items have been removed The door is open or patient has been bp placed in a hallway bed/chair. There are no family/friend visitors at this time. 05:15 Safety checks: Items removed: yes. Door open/sign placed on door: yes. Family/friend vo1 present: no. 05:30 Safety Checks: Personal items have been removed The door is open or patient has been bp placed in a hallway bed/chair. There are no family/friend visitors at this time. 05:30 Safety checks: Items removed: yes. Door open/sign placed on door: yes. Family/friend vo1 present: no. 05:45 Safety Checks: Personal items have been removed The door is open or patient has been bp placed in a hallway bed/chair. There are no family/friend visitors at this time. 05:45 Safety checks: Items removed: yes. Door open/sign placed on door: yes. Family/friend vo1 present: no. 06:00 Safety Checks: Personal items have been removed The door is open or patient has been bp placed in a hallway bed/chair. There are no family/friend visitors at this time. 06:00 Safety checks: Items removed: yes. Door open/sign placed on door: yes. Family/friend vo1 present: no. 06:15 Safety checks: Items removed: yes. Door open/sign placed on door: yes. Family/friend vo1 present: no. 06:30 Safety checks: Items removed: yes. Door open/sign placed on door: yes. Family/friend vo1 present: no. 06:30 Safety checks: Items removed: yes. Door open/sign placed on door: yes. Family/friend vo1 present: no. 06:45 Safety checks: Items removed: yes. Door open/sign placed on door: yes. Family/friend vo1 present: no. 07:00 No apparent distress. Appears to be sleeping. Sitter remains at bedside today and will tw2 remain throughout entire shift. Safety Checks: Personal items have been removed The door is open or patient has been placed in a hallway bed/chair. There are no family/friend visitors at this time. 07:00 Safety checks: Items removed: yes. Door open/sign placed on door: yes. Family/friend mh5 present: no. 07:01 Primary Nurse role handed off by Vasquez Mcmillan RN tw2 07:01 Paris Rosales RN is Primary Nurse. tw2 07:15 Safety Checks: Personal items have been removed The door is open or patient has been tw2 placed in a hallway bed/chair. There are no family/friend visitors at this time. 07:15 Safety checks: Items removed: yes. Door open/sign placed on door: yes. Family/friend mh5 present: no. 07:30 Safety Checks: Personal items have been removed The door is open or patient has been tw2 placed in a hallway bed/chair. The door is not opened, nor is patient placed in a hallway bed/chair. 07:30 Safety checks: Items removed: yes. Door open/sign placed on door: yes. Family/friend mh5 present: no. 07:45 Safety Checks: Personal items have been removed The door is open or patient has been tw2 placed in a hallway bed/chair. There are no family/friend visitors at this time. 07:45 Safety checks: Items removed: yes. Door open/sign placed on door: yes. Family/friend mh5 present: no. 08:00 Safety Checks: Personal items have been removed The door is open or patient has been tw2 placed in a hallway bed/chair. There are no family/friend visitors at this time. 08:00 Safety checks: Items removed: yes. Door open/sign placed on door: yes. Family/friend mh5 present: no. 08:15 No apparent distress. Resting quietly. Safety Checks: Personal items have been removed tw2 The door is open or patient has been placed in a hallway bed/chair. There are no family/friend visitors at this time. 08:15 Safety checks: Items removed: yes. Door open/sign placed on door: yes. Family/friend mh5 present: no. 08:30 No apparent distress. eating breakfast at this time. Safety Checks: Personal items have tw2 been removed The door is open or patient has been placed in a hallway bed/chair. There are no family/friend visitors at this time. 08:30 Safety checks: Items removed: yes. Door open/sign placed on door: yes. Family/friend mh5 present: no. 08:43 Diet tray ordered. Diet tray given. mh5 08:45 No apparent distress. Safety Checks: Personal items have been removed The door is open tw2 or patient has been placed in a hallway bed/chair. There are no family/friend visitors at this time. 08:45 Safety checks: Items removed: yes. Door open/sign placed on door: yes. Family/friend mh5 present: no. 09:00 No apparent distress. Resting quietly. Appears to be sleeping. Safety Checks: Personal tw2 items have been removed The door is open or patient has been placed in a hallway bed/chair. There are no family/friend visitors at this time. 09:00 Safety checks: Items removed: yes. Door open/sign placed on door: yes. Family/friend mh5 present: no. 09:15 No apparent distress. Safety Checks: Personal items have been removed The door is open tw2 or patient has been placed in a hallway bed/chair. There are no family/friend visitors at this time. 09:15 Safety checks: Items removed: yes. Door open/sign placed on door: yes. Family/friend mh5 present: no. 09:16 No provider procedures requiring assistance completed. tw2 09:30 No apparent distress. Appears to be sleeping. Safety Checks: Personal items have been tw2 removed The door is open or patient has been placed in a hallway bed/chair. There are no family/friend visitors at this time. 09:30 Safety checks: Items removed: yes. Door open/sign placed on door: yes. Family/friend mh5 present: no. 09:45 Safety Checks: Personal items have been removed The door is open or patient has been tw2 placed in a hallway bed/chair. There are no family/friend visitors at this time. 09:45 Safety checks: Items removed: yes. Door open/sign placed on door: yes. Family/friend mh5 present: no. 10:00 No apparent distress. Appears to be sleeping. Safety Checks: Personal items have been tw2 removed The door is open or patient has been placed in a hallway bed/chair. There are no family/friend visitors at this time. 10:00 Safety checks: Items removed: yes. Door open/sign placed on door: yes. Family/friend mh5 present: no. 10:15 No apparent distress. Resting quietly. Safety Checks: Personal items have been removed tw2 The door is open or patient has been placed in a hallway bed/chair. There are no family/friend visitors at this time. 10:15 Safety checks: Items removed: yes. Door open/sign placed on door: yes. Family/friend mh5 present: no. 10:30 Safety Checks: Personal items have been removed The door is open or patient has been tw2 placed in a hallway bed/chair. There are no family/friend visitors at this time. 10:30 Safety checks: Items removed: yes. Door open/sign placed on door: yes. Family/friend mh5 present: no. 10:45 Safety Checks: Personal items have been removed The door is open or patient has been tw2 placed in a hallway bed/chair. There are no family/friend visitors at this time. 10:45 Safety checks: Items removed: yes. Door open/sign placed on door: yes. Family/friend mh5 present: no. 11:00 Safety Checks: Personal items have been removed The door is open or patient has been tw2 placed in a hallway bed/chair. There are no family/friend visitors at this time. 11:00 Safety checks: Items removed: yes. Door open/sign placed on door: yes. Family/friend mh5 present: no. 11:15 No apparent distress. Appears to be sleeping. Safety Checks: Personal items have been tw2 removed The door is open or patient has been placed in a hallway bed/chair. There are no family/friend visitors at this time. 11:15 Safety checks: Items removed: yes. Door open/sign placed on door: yes. Family/friend mh5 present: no. 11:30 Safety Checks: Personal items have been removed The door is open or patient has been tw2 placed in a hallway bed/chair. There are no family/friend visitors at this time. 11:30 Safety checks: Items removed: yes. Door open/sign placed on door: yes. Family/friend mh5 present: no. 11:36 Diet tray ordered. Diet tray given. mh5 11:45 Safety Checks: Personal items have been removed The door is open or patient has been tw2 placed in a hallway bed/chair. There are no family/friend visitors at this time. 11:45 Safety checks: Items removed: yes. Door open/sign placed on door: yes. Family/friend mh5 present: no. 12:00 No apparent distress. eating lunch at this time. Safety Checks: Personal items have tw2 been removed The door is open or patient has been placed in a hallway bed/chair. There are no family/friend visitors at this time. 12:00 Safety checks: Items removed: yes. Door open/sign placed on door: yes. Family/friend mh5 present: no. 12:15 Safety Checks: Personal items have been removed The door is open or patient has been tw2 placed in a hallway bed/chair. There are no family/friend visitors at this time. 12:15 Safety checks: Items removed: yes. Door open/sign placed on door: yes. Family/friend mh5 present: no. 12:30 Safety Checks: Personal items have been removed The door is open or patient has been tw2 placed in a hallway bed/chair. There are no family/friend visitors at this time. 12:30 Safety checks: Items removed: yes. Door open/sign placed on door: yes. Family/friend dh3 present: no. 12:45 Safety Checks: Personal items have been removed The door is open or patient has been tw2 placed in a hallway bed/chair. There are no family/friend visitors at this time. 12:45 Safety checks: Items removed: yes. Door open/sign placed on door: yes. Family/friend dh3 present: no. 13:00 No apparent distress. Resting quietly. Appears to be sleeping. Safety Checks: Personal tw2 items have been removed The door is open or patient has been placed in a hallway bed/chair. There are no family/friend visitors at this time. 13:00 Safety checks: Items removed: yes. Door open/sign placed on door: yes. Family/friend mh5 present: no. 13:15 Safety Checks: Personal items have been removed The door is open or patient has been tw2 placed in a hallway bed/chair. There are no family/friend visitors at this time. 13:15 Safety checks: Items removed: yes. Door open/sign placed on door: yes. Family/friend mh5 present: no. 13:30 No apparent distress. Appears to be sleeping. Safety Checks: Personal items have been tw2 removed The door is open or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
== END 2018-02-23 18:47 ==
LOC: ER 18:17
DX: R45.851 Suicidal ideations (principal); F31.9 Bipolar disorder, unspecified
CPT/HCPCS: 36415; 70450; 80048; 80076; 80307; 80320; 80329; 81003; 84132; 85025; 85610; 85730; 93005; 96374; 99285; J7030

== ENCOUNTER 2018-04-20 00:12 | Emergency (ER) | payer SELFPAY ==
[2018-04-20] MEDS ORDERED: NA CHLORIDE 0.9% 1,000 ML ONE (00:53)
--- NOTE | 2018-04-20 01:13 | ER ---
Nurse's Notes [facility] Name: Som Clements Age: 37 yrs Sex: Male : 1980 Arrival Date: 04/20/2018 Time: 00:13 Bed 16 Private MD: Diagnosis: Major depressive disorder, recurrent Presentation: 04/20 00:15 Method Of Arrival: Ambulatory 00:15 Acuity: TA 2 00:15 Presenting complaint: Patient states: that he has attempted to kill himself x 3 this week. On Friday he took 200 tabs of Benadryl, on he took 250 tabs of Benadryl and on Friday he took 250 tabs of Benadryl. Transition of care: patient was not received from another setting of care. Onset of symptoms was April 12, 2018. Risk Assessment: Do you want to hurt yourself or someone else? Patient reports desire/thoughts of hurting themselves or someone else. Provider notified. Initial Sepsis Screen: Does the patient meet any 2 criteria? No. Patient's initial sepsis screen is negative. Does the patient have a suspected source of infection? No. Patient's initial sepsis screen is negative. Care prior to arrival: None. Historical: - Allergies: 00:36 NKDA; fc - Home Meds: 00:36 None [Active]; fc - PMHx: 00:36 Bipolar disorder; Schizophrenia; Depression; Anxiety; fc - PSHx: 00:36 None; fc - Immunization history:: Last tetanus immunization: up to date. - Social history:: Smoking status: Patient/guardian denies using tobacco, Patient/guardian denies using alcohol, street drugs. - Ebola Screening: : Patient negative for fever greater than or equal to 101.5 degrees Fahrenheit, and additional compatible Ebola Virus Disease symptoms Patient denies exposure to infectious person Patient denies travel to an Ebola-affected area in the 21 days before illness onset. Screenin:37 Abuse screen: Denies threats or abuse. Nutritional screening: No deficits noted. fc Tuberculosis screening: No symptoms or risk factors identified. Fall Risk None identified. Assessment: 01:00 General: Appears in no apparent distress. comfortable, Behavior is calm, cooperative. mg2 Pain: Denies pain. Neuro: Level of Consciousness is awake, alert, obeys commands, Oriented to person, place, time, situation. Cardiovascular: Capillary refill < 3 seconds Patient's skin is warm and dry. Respiratory: Airway is patent Respiratory effort is even, unlabored, Respiratory pattern is regular, symmetrical. GI: No signs and/or symptoms were reported involving the gastrointestinal system. : No signs and/or symptoms were reported regarding the genitourinary system. EENT: No signs and/or symptoms were reported regarding the EENT system. Derm: Skin is intact, Skin is pink, warm \\T\\ dry. normal. Musculoskeletal: No signs and/or symptoms reported regarding the musculoskeletal system. 01:47 Reassessment: Patient appears in no apparent distress at this time. Patient and/or mg2 family updated on plan of care and expected duration. Pain level reassessed. Patient is alert, oriented x 3, equal unlabored respirations, skin warm/dry/pink. 02:38 Reassessment: patient sleeping on bed. no complaints noted. mg2 03:00 Reassessment: Patient appears in no apparent distress at this time. No changes from jd3 previously documented assessment. Patient and/or family updated on plan of care and expected duration. Pain level reassessed. Patient is alert, oriented x 3, equal unlabored respirations, skin warm/dry/pink. pt resting in bed with eyes closed, even and unlabored respirations, no distress noted at this time, sitter at bedside. 04:00 Reassessment: Patient appears in no apparent distress at this time. No changes from jd3 previously documented assessment. Patient and/or family updated on plan of care and expected duration. Pain level reassessed. Patient is alert, oriented x 3, equal unlabored respirations, skin warm/dry/pink. 05:00 Reassessment: Patient appears in no apparent distress at this time. No changes from jd3 previously documented assessment. Patient and/or family updated on plan of care and expected duration. Pain level reassessed. Patient is alert, oriented x 3, equal unlabored respirations, skin warm/dry/pink. 05:38 Reassessment: report given to Tori CULLEN at [facility]. jd3 06:00 Reassessment: Patient appears in no apparent distress at this time. No changes from jd3 previously documented assessment. Patient and/or family updated on plan of care and expected duration. Pain level reassessed. Patient is alert, oriented x 3, equal unlabored respirations, skin warm/dry/pink. pt resting in bed with eyes closed, even and unlabored respirations, no distress noted at this time. sitter remains at bedside. 07:00 Reassessment: Pt currently resting in bed with eyes closed, respirations are even and aa5 unlabored, skin is pink/warm/dry. . 07:40 Reassessment: Awaiting breakfast tray. . aa5 08:00 Reassessment: Pt resting in bed with eyes closed, respirations are even and unlabored, aa5 skin is pink/warm/dry. . 08:30 Reassessment: Pt is easy to awaken to verbal stimuli. Pt reports suicidal ideation and aa5 recent attempt by overdose. Pt states "I used to take psych meds but I haven't for about a year now, I don't remember the names". When asked about hallucinations, pt states "it's hard for me to know if it's real or if I am hallucinating". Pt updated on plan of care and about attempts to transfer to a psych facility, pt notified of possible long wait time for placement, pt verbalizes understanding about POC. . General: Appears comfortable, Behavior is calm, cooperative. Pain: Denies pain. Neuro: Level of Consciousness is awake, alert, obeys commands, Oriented to person, place, time, situation. Cardiovascular: Heart tones S1 S2 present Rhythm is regular. Respiratory: Airway is patent Respiratory effort is even, unlabored, Respiratory pattern is regular, symmetrical, Breath sounds are clear bilaterally. GI: Abdomen is flat, non-distended, Bowel sounds present X 4 quads. Abd is soft and non tender X 4 quads. Patient currently denies nausea, vomiting. : No signs and/or symptoms were reported regarding the genitourinary system. EENT: No signs and/or symptoms were reported regarding the EENT system. Derm: Skin is pink, warm \\T\\ dry. Musculoskeletal: Range of motion: intact in all extremities. 09:00 Reassessment: Pt resting in bed with eyes closed, respirations even and unlabored, skin aa5 is pink/warm/dry. . 09:00 Reassessment: Pt did not eat breakfast. . aa5 10:00 Reassessment: Patient is alert, oriented x 3, equal unlabored respirations, skin aa5 warm/dry/pink. Jaye ([facility] [employer]) at bedside speaking to patient. . 11:53 General: Appears in no apparent distress. comfortable, Behavior is calm, cooperative, aj appropriate for age. Neuro: Level of Consciousness is awake, alert, obeys commands, Oriented to person, place, time, situation. Respiratory: Airway is patent Respiratory effort is even, unlabored, Respiratory pattern is regular, symmetrical. GI: Abdomen is flat, non-distended. Derm: Skin is intact, is healthy with good turgor, Skin is pink, warm \\T\\ dry. normal. 12:54 Reassessment: Patient appears in no apparent distress at this time. No changes from previously documented assessment. Patient and/or family updated on plan of care and expected duration. Pain level reassessed. Patient is alert, oriented x 3, equal unlabored respirations, skin warm/dry/pink. Lunch tray ordered for patient. 16:02 Reassessment: Patient appears in no apparent distress at this time. No changes from aj previously documented assessment. Patient and/or family updated on plan of care and expected duration. Pain level reassessed. Patient is alert, oriented x 3, equal unlabored respirations, skin warm/dry/pink. Psych: 00:15 Subjective: Patient's mood is sad, hopeless, Delusions are denied, Hallucinations are fc auditory, visual, Having thoughts of suicide. Plan for suicide is to overdose or jump off highest place he can find. Objective: Patient is cooperative, Speech is normal, Affect is appropriate. Interventions: Removed personal items and placed in bag. Patient placed in hospital gown. Searched person for dangerous items. Suicide Risk Assessment: Sad Person Scale: Sex of patient: Male: Score 1 point. Age of patient: Score 0 point if patient falls outside of specified age parameters. Depression: Score 1 point if signs of depression are present. Previous Attempt: Score 1 point if patient has previously attempted suicide. Substance Abuse: Score 0 point if patient does not abuse alcohol or drugs. Rational Thinking: Score 1 point if patient is lacking rational thinking. Social Support: Score 1 point if social support is lacking and/or unavailable. Organized Plan: Score 1 point if patient had a plan in place. Relationship: Score 1 point if patient is , , , or for a single male Chronic Sickness: Score 0 point if patient does not have a chronic illness, debilitating, or severe disorder. TOTAL POINTS: If total points are 5-6, proposed clinical action is to strongly consider hospitalization, depending upon confidence in the follow-up arrangement. Implement suicide precautions. Safety Checks: Personal items have been removed. Door is open. No visitors are present at this time. Pt denies substance abuse. Commitment: Patient will be a voluntary commitment. Vital Signs: 00:15 BP 126 / 83; Pulse 75; Resp 18; Temp 98.3(O); Pulse Ox 99% on R/A; Weight 72.57 kg (R); fc Height 5 ft. 11 in. (180.34 cm) (R); Pain 0/10; 04:00 BP 101 / 63; Pulse 66; Resp 20; Temp 98.6(O); Pulse Ox 100% on R/A; Pain 0/10; jd3 08:30 BP 116 / 79; Pulse 65; Resp 18 S; Temp 98.3(O); Pulse Ox 98% on R/A; Pain 0/10; aa5 11:05 BP 126 / 79; Pulse 74; Resp 16; Temp 98.7; Pulse Ox 98% ; mp1 13:01 BP 114 / 78; Pulse 67; Resp 16; Temp 98.3; Pulse Ox 97% ; mp1 15:16 BP 126 / 82; Pulse 82; Resp 18; Temp 98.3; Pulse Ox 98% ; mp1 00:15 Body Mass Index 22.32 (72.57 kg, 180.34 cm) ED Course: 00:13 Patient arrived in ED. am2 00:15 Arm band placed on Patient placed in an exam room, on a stretcher. 00:34 Triage completed. 00:34 Giacomo Khan MD is Attending Physician. regine 00:37 Patient has correct armband on for positive identification. Bed in low position. Call light in reach. 00:42 Adam Zafar RN is Primary Nurse. mg2 00:59 No provider procedures requiring assistance completed. Inserted saline lock: 20 gauge mg2 in left antecubital area, using aseptic technique. Blood collected. 01:00 Resting quietly. Safety Checks: Personal items have been removed. The door is open or eb1 patient has been placed in a hallway bed/chair. There are no family/friend visitors at this time Sitter present at this time. 01:15 Resting quietly. Safety Checks: Personal items have been removed. The door is open or eb1 patient has been placed in a hallway bed/chair. There are no family/friend visitors at this time Sitter present at this time. 01:30 No apparent distress. Resting quietly. Safety Checks: Personal items have been removed. eb1 The door is open or patient has been placed in a hallway bed/chair. There are no family/friend visitors at this time Sitter present at this time. 01:45 Safety Checks: Personal items have been removed. The door is open or patient has been eb1 placed in a hallway bed/chair. There are no family/friend visitors at this time Sitter present at this time. 01:47 Placed in gown. mg2 02:00 No apparent distress. Resting quietly. Safety Checks: Personal items have been removed. eb1 The door is open or patient has been placed in a hallway bed/chair. There are no family/friend visitors at this time Sitter present at this time. 02:15 No apparent distress. Resting quietly. Safety Checks: Personal items have been removed. eb1 The door is open or patient has been placed in a hallway bed/chair. There are no family/friend visitors at this time Sitter present at this time. 02:30 No apparent distress. Resting quietly. Safety Checks: Personal items have been removed. eb1 The door is open or patient has been placed in a hallway bed/chair. There are no family/friend visitors at this time Sitter present at this time. 02:45 No apparent distress. Resting quietly. Safety Checks: Personal items have been removed. eb1 The door is open or patient has been placed in a hallway bed/chair. There are no family/friend visitors at this time Sitter present at this time. 03:00 No apparent distress. Resting quietly. Safety Checks: Personal items have been removed. eb1 The door is open or patient has been placed in a hallway bed/chair. There are no family/friend visitors at this time Sitter present at this time. 03:15 No apparent distress. Resting quietly. Safety Checks: Personal items have been removed. eb1 The door is open or patient has been placed in a hallway bed/chair. There are no family/friend visitors at this time Sitter present at this time. 03:24 Urine Drug Screen Sent. jd3 03:30 No apparent distress. Resting quietly. Safety Checks: Personal items have been removed. eb1 The door is open or patient has been placed in a hallway bed/chair. There are no family/friend visitors at this time Sitter present at this time. 03:45 Safety Checks: Personal items have been removed. The door is open or patient has been eb1 placed in a hallway bed/chair. There are no family/friend visitors at this time Sitter present at this time. 03:45 No apparent distress. Resting quietly. eb1 04:00 No apparent distress. Resting quietly. Safety Checks: Personal items have been removed. eb1 The door is open or patient has been placed in a hallway bed/chair. There are no family/friend visitors at this time Sitter present at this time. 04:15 No apparent distress. Resting quietly. Safety Checks: Personal items have been removed. eb1 The door is open or patient has been placed in a hallway bed/chair. There are no family/friend visitors at this time Sitter present at this time. 04:30 No apparent distress. Resting quietly. Safety Checks: Personal items have been removed. eb1 The door is open or patient has been placed in a hallway bed/chair. There are no family/friend visitors at this time Sitter present at this time. 04:45 No apparent distress. Resting quietly. Safety Checks: Personal items have been removed. eb1 The door is open or patient has been placed in a hallway bed/chair. There are no family/friend visitors at this time Sitter present at this time. 05:00 No apparent distress. Resting quietly. Safety Checks: Personal items have been removed. eb1 The door is open or patient has been placed in a hallway bed/chair. There are no family/friend visitors at this time Sitter present at this time. 05:15 No apparent distress. Resting quietly. Safety Checks: Personal items have been removed. eb1 The door is open or patient has been placed in a hallway bed/chair. There are no family/friend visitors at this time Sitter present at this time. 05:26 Safety checks: Items removed: yes. Door open/sign placed on door: yes. Family/friend jw5 present: no. Sitter present: Yes. 05:30 Safety Checks: Personal items have been removed. The door is open or patient has been jd3 placed in a hallway bed/chair. There are no family/friend visitors at this time Sitter present at this time. 05:41 Safety checks: Items removed: yes. Door open/sign placed on door: yes. Family/friend jw5 present: no. Sitter present: Yes. 05:45 Safety Checks: Personal items have been removed. The door is open or patient has been jd3 placed in a hallway bed/chair. There are no family/friend visitors at this time Sitter present at this time. 05:56 Safety checks: Items removed: yes. Door open/sign placed on door: yes. Family/friend jw5 present: no. Sitter present: Yes. 06:00 Safety Checks: Personal items have been removed. The door is open or patient has been jd3 placed in a hallway bed/chair. There are no family/friend visitors at this time Sitter present at this time. 06:11 Safety checks: Items removed: yes. Door open/sign placed on door: yes. Family/friend jw5 present: no. Sitter present: Yes. 06:15 Safety Checks: Personal items have been removed. The door is open or patient has been jd3 placed in a hallway bed/chair. There are no family/friend visitors at this time Sitter present at this time. 06:26 Safety checks: Items removed: yes. Door open/sign placed on door: yes. Family/friend jw5 present: no. Sitter present: Yes. 06:30 Safety Checks: Personal items have been removed. The door is open or patient has been jd3 placed in a hallway bed/chair. There are no family/friend visitors at this time Sitter present at this time. 06:45 Safety Checks: Personal items have been removed. The door is open or patient has been jd3 placed in a hallway bed/chair. There are no family/friend visitors at this time Sitter present at this time. 06:59 Primary Nurse role handed off by Adam Zafar RN jd3 06:59 Akin Dowell RN is Primary Nurse. jd3 07:00 Report received from SUBHASH Gerardo. aa5 07:02 Safety checks: Items removed: yes. Door open/sign placed on door: yes. Family/friend em1 present: no. Safety checks: Sitter present: Yes. 07:03 Giacomo Elkins PA is PHCP. cp 07:07 Report given to Donna CULLEN. jd3 07:15 Safety checks: Items removed: yes. Door open/sign placed on door: yes. Family/friend mp1 present: no. Sitter present: Yes. 07:30 Safety checks: Items removed: yes. Door open/sign placed on door: yes. Family/friend mp1 present: no. Sitter present: Yes. 07:30 faxed demographics and patient records to the following facilities to initiate transfer eb ; [facility], [facility], [facility], [facility], [facility], [facility], [facility], [facility], [facility], [facility], and [facility]. 07:32 called and spoke with Shanelle at the [facility]. She will be calling out her eb screener to let her know we have a client for screening. 07:45 Safety checks: Items removed: yes. Door open/sign placed on door: yes. Family/friend mp1 present: no. Sitter present: Yes. 08:00 Safety checks: Items removed: yes. Door open/sign placed on door: yes. Family/friend mp1 present: no. Sitter present: Yes. 08:15 Safety checks: Items removed: yes. Door open/sign placed on door: yes. Family/friend mp1 present: no. Sitter present: Yes. 08:16 Milagros from [facility] called to decline patient due to no adult beds at this eb time. 08:30 Safety checks: Items removed: yes. Door open/sign placed on door: yes. Family/friend mp1 present: no. Sitter present: Yes. 08:42 Jess called from [facility] to check if we has any patients that needed eb screening and was notified at this time we had one for her. 08:45 Safety checks: Items removed: yes. Door open/sign placed on door: yes. Family/friend mp1 present: no. Sitter present: Yes. 09:00 Safety checks: Items removed: yes. Door open/sign placed on door: yes. Family/friend mp1 present: no. Sitter present: Yes. 09:08 Jaye from [facility] called and said she will be leaving [place] soon and headed eb this way. 09:15 Safety checks: Items removed: yes. Door open/sign placed on door: yes. Family/friend mp1 present: no. Sitter present: Yes. 09:27 called out the [facility]/ [place] at dispatch will be notifying the deputy eb it architecture consultant today. 09:30 Safety checks: Items removed: yes. Door open/sign placed on door: yes. Family/friend mp1 present: no. Sitter present: Yes. 09:31 [place] Kareem notified and will be getting an EAD for the patient. eb 09:43 Jaye from [facility] here to screen patient. eb 09:45 Safety checks: Items removed:. mp1 10:00 Safety checks: Items removed: yes. Door open/sign placed on door: yes. Family/friend mp1 present: no. Sitter present: Yes. 10:15 Safety checks: Items removed: yes. Door open/sign placed on door: yes. Family/friend mp1 present: no. Sitter present: Yes. 10:30 Safety checks: Items removed: yes. Door open/sign placed on door: yes. Family/friend mp1 present: no. Sitter present: Yes. 10:45 Safety checks: Items removed: yes. Door open/sign placed on door: yes. Family/friend mp1 present: no. Sitter present: Yes. 11:00 Safety checks: Items removed: yes. Door open/sign placed on door: yes. Family/friend mp1 present: no. 11:00 Report given to Maci Leiva RN. aa5 11:15 Safety checks: Items removed: yes. Door open/sign placed on door: yes. Family/friend mp1 present: no. Sitter present: Yes. 11:30 Safety checks: Items removed: yes. Door open/sign placed on door: yes. Family/friend mp1 present: no. Sitter present: Yes. 11:45 Safety checks: Items removed: yes. Door open/sign placed on door: yes. Family/friend mp1 present: no. Sitter present: Yes. 12:00 Safety checks: Items removed: yes. Door open/sign placed on door: yes. Family/friend mp1 present: no. Sitter present: Yes. 12:15 Safety checks: Items removed: yes. Door open/sign placed on door: yes. Family/friend mp1 present: no. Sitter present: Yes. 12:30 Safety checks: Items removed: yes. no. Reason for not removing items: Door open/sign mp1 placed on door: yes. Family/friend present: no. Sitter present: Yes. 12:45 Safety checks: Items removed: yes. Door open/sign placed on door: yes. Family/friend mp1 present: no. Sitter present: Yes. 13:00 Safety checks: Items removed: yes. Door open/sign placed on door: yes. Family/friend mp1 present: no. Sitter present: Yes. 13:15 Safety checks: Items removed: yes. Door open/sign placed on door: yes. Family/friend em1 present: no. Sitter present: Yes. 13:35 Safety checks: Items removed: yes. Safety checks: Door open/sign placed on door: yes. em1 Family/friend present: no. Sitter present: Yes. 13:46 Safety checks: Items removed: yes. Door open/sign placed on door: yes. Family/friend em1 present: no. Sitter present: Yes. 14:00 Safety checks: Items removed: yes. Door open/sign placed on door: yes. Family/friend mp1 present: no. Sitter present: Yes. 14:15 Safety checks: Items removed: yes. Door open/sign placed on door: yes. Family/friend mp1 present: no. Sitter present: Yes. 14:30 Safety checks: Items removed: yes. Door open/sign placed on door: yes. Family/friend mp1 present: no. Sitter present: Yes. 14:45 Safety checks: Items removed: yes. Door open/sign placed on door: Patient placed in mp1 hallway bed. Family/friend present: no. Sitter present: Yes. 15:00 Safety checks: Items removed: yes. Door open/sign placed on door: yes. Family/friend mp1 present: no. Sitter present: Yes. 15:15 Safety checks: Items removed: yes. Door open/sign placed on door: yes. Family/friend mp1 present: no. Sitter present: Yes. 16:01 Primary Nurse role handed off by Akin Dowell RN dm5 16:01 Maci Lanier, RN is Primary Nurse. dm5 16:02 IV discontinued, intact, bleeding controlled, No redness/swelling at site. Pressure aj dressing applied. Administered Medications: 00:59 Drug: NS 0.9% 1000 ml Route: IV; Rate: 1 bolus; Site: left antecubital; mg2 02:40 Follow up: Response: No adverse reaction; IV Status: Completed infusion mg2 Outcome: 01:13 ER care complete, transfer ordered by . regine 15:32 Discharge ordered by . 16:01 Patient left the ED. dm5 16:02 Discharged to home ambulatory. aj 16:02 Condition: good 16:02 Discharge instructions given to patient, Instructed on discharge instructions, follow up and referral plans. Demonstrated understanding of instructions, follow-up care. Signatures: Nini Gao, RN Maci Bridges, RN Giacomo Gimenez MD MD cha Chretien, Felicia RN Camilo Whitaker em1 Donna James RN SUBHASH aa5 Giacomo Elkins PA PA cp Moreno, Amanda am2 Davies, Jonathon, RN RN jd3 Wiley, Jasmin jw5 Nina Jansen Michele, RN RN [facility] Bree Roach RN RN eb1 Fatmata Albarran mp1 Corrections: (The following items were deleted from the chart) 01:49 01:48 Safety Checks: Personal items have been removed. The door is open or patient has eb1 been placed in a hallway bed/chair. Sitter present at this time. mg2 03:53 03:52 No apparent distress. Resting quietly. eb1 eb1 03:53 03:52 Safety Checks: Personal items have been removed. The door is open or patient has eb1 been placed in a hallway bed/chair. There are no family/friend visitors at this time Sitter present at this time. eb1 04:57 04:10 BP 101 / 63; Pulse 66bpm; Resp 20bpm; Pulse Ox 100% RA; Temp 98.6F Oral; Pain jd3 0/10; eb1
--- NOTE | 2018-04-20 01:13 | EDPHYS ---
Physician Documentation [facility] Name: Som Clements Age: 37 yrs Sex: Male : 1980 Arrival Date: 04/20/2018 Time: 00:13 Bed 16 Private MD: ED Physician Giacomo Khan HPI: 04/20 01:08 This 37 yrs old Male presents to ER via Ambulatory with complaints of regine Suicidal Ideation. 01:08 The patient presents to the emergency department with depression, a history of a regine suicide gesture, where the patient took pills/medications, benadryl, suicide ideation. Onset: The symptoms/episode began/occurred 1 week(s) ago. Past psychiatric history: Prior diagnosis: depression. Past psychiatric history: Prior diagnosis: bipolar disorder. Associated signs and symptoms: Pertinent positives;. Severity of symptoms: At their worst the symptoms were moderate. The patient has not experienced similar symptoms in the past. Historical: - Allergies: 00:36 NKDA; fc - Home Meds: 00:36 None [Active]; fc - PMHx: 00:36 Bipolar disorder; Schizophrenia; Depression; Anxiety; fc - PSHx: 00:36 None; fc - Immunization history:: Last tetanus immunization: up to date. - Social history:: Smoking status: Patient/guardian denies using tobacco, Patient/guardian denies using alcohol, street drugs. - Ebola Screening: : Patient negative for fever greater than or equal to 101.5 degrees Fahrenheit, and additional compatible Ebola Virus Disease symptoms Patient denies exposure to infectious person Patient denies travel to an Ebola-affected area in the 21 days before illness onset. ROS: 01:09 Constitutional: Negative for fever, chills, and weight loss, Eyes: Negative for injury, regine pain, redness, and discharge, ENT: Negative for injury, pain, and discharge, Neck: Negative for injury, pain, and swelling, Cardiovascular: Negative for chest pain, palpitations, and edema, Respiratory: Negative for shortness of breath, cough, wheezing, and pleuritic chest pain, Abdomen/GI: Negative for abdominal pain, nausea, vomiting, diarrhea, and constipation, Back: Negative for injury and pain, : Negative for injury, bleeding, discharge, and swelling, MS/Extremity: Negative for injury and deformity, Skin: Negative for injury, rash, and discoloration, Neuro: Negative for headache, weakness, numbness, tingling, and seizure, Allergy/Immunology: Negative for hives, rash, and allergies, Endocrine: Negative for neck swelling, polydipsia, polyuria, polyphagia, and marked weight changes, Hematologic/Lymphatic: Negative for swollen nodes, abnormal bleeding, and unusual bruising. 01:09 Psych: Positive for depression, suicide gesture, suicidal ideation. Exam: :09 Constitutional: This is a well developed, well nourished patient who is awake, alert, regine and in no acute distress. Head/Face: Normocephalic, atraumatic. Eyes: Pupils equal round and reactive to light, extra-ocular motions intact. Lids and lashes normal. Conjunctiva and sclera are non-icteric and not injected. Cornea within normal limits. Periorbital areas with no swelling, redness, or edema. ENT: Nares patent. No nasal discharge, no septal abnormalities noted. Tympanic membranes are normal and external auditory canals are clear. Oropharynx with no redness, swelling, or masses, exudates, or evidence of obstruction, uvula midline. Mucous membranes moist. Neck: Trachea midline, no thyromegaly or masses palpated, and no cervical lymphadenopathy. Supple, full range of motion without nuchal rigidity, or vertebral point tenderness. No Meningismus. Chest/axilla: Normal chest wall appearance and motion. Nontender with no deformity. No lesions are appreciated. Cardiovascular: Regular rate and rhythm with a normal S1 and S2. No gallops, murmurs, or rubs. Normal PMI, no JVD. No pulse deficits. Respiratory: Lungs have equal breath sounds bilaterally, clear to auscultation and percussion. No rales, rhonchi or wheezes noted. No increased work of breathing, no retractions or nasal flaring. Abdomen/GI: Soft, non-tender, with normal bowel sounds. No distension or tympany. No guarding or rebound. No evidence of tenderness throughout. Back: No spinal tenderness. No costovertebral tenderness. Full range of motion. Male : Normal genitalia with no discharge or lesions. Skin: Warm, dry with normal turgor. Normal color with no rashes, no lesions, and no evidence of cellulitis. MS/ Extremity: Pulses equal, no cyanosis. Neurovascular intact. Full, normal range of motion. Neuro: Awake and alert, GCS 15, oriented to person, place, time, and situation. Cranial nerves II-XII grossly intact. Motor strength 5/5 in all extremities. Sensory grossly intact. Cerebellar exam normal. Normal gait. 01:09 Psych: Behavior/mood is pleasant, Affect is flat, Oriented to person, place, time, Patient has no thoughts/intents to harm self or others. Judgement / Insight is normal. Memory is normal. Delusions/hallucinations are not present. Vital Signs: 00:15 BP 126 / 83; Pulse 75; Resp 18; Temp 98.3(O); Pulse Ox 99% on R/A; Weight 72.57 kg (R); fc Height 5 ft. 11 in. (180.34 cm) (R); Pain 0/10; 04:00 BP 101 / 63; Pulse 66; Resp 20; Temp 98.6(O); Pulse Ox 100% on R/A; Pain 0/10; jd3 08:30 BP 116 / 79; Pulse 65; Resp 18 S; Temp 98.3(O); Pulse Ox 98% on R/A; Pain 0/10; aa5 11:05 BP 126 / 79; Pulse 74; Resp 16; Temp 98.7; Pulse Ox 98% ; mp1 13:01 BP 114 / 78; Pulse 67; Resp 16; Temp 98.3; Pulse Ox 97% ; mp1 15:16 BP 126 / 82; Pulse 82; Resp 18; Temp 98.3; Pulse Ox 98% ; mp1 00:15 Body Mass Index 22.32 (72.57 kg, 180.34 cm) MDM: 00:34 Patient medically screened. [facility] 01:09 Data reviewed: vital signs, nurses notes, lab test result(s), EKG. regine 15:29 ED course: Patient denying any current suicidal or homicidal ideation and is requesting cp to be discharged to home. 04/20 00:44 Order name: Acetaminophen; Complete Time: 15:31 regine 04/20 00:44 Order name: Basic Metabolic Panel; Complete Time: 15:31 [facility] 04/20 00:44 Order name: CBC with Diff; Complete Time: 02:27 [facility] 04/20 00:44 Order name: ETOH Level; Complete Time: 15:31 [facility] 04/20 00:44 Order name: Hepatic Function; Complete Time: 15:31 [facility] 04/20 00:44 Order name: PT-INR; Complete Time: 02:27 [facility] 04/20 00:44 Order name: Ptt, Activated; Complete Time: 02:27 [facility] 04/20 00:44 Order name: Salicylate; Complete Time: 02:27 [facility] 04/20 00:44 Order name: Urine Drug Screen; Complete Time: 15:31 [facility] 04/20 00:44 Order name: TSH; Complete Time: 15:31 [facility] 04/20 02:23 Order name: T4 Free; Complete Time: 15:31 [facility] 04/20 03:26 Order name: Urine Dipstick--Ancillary (enter results) rg2 04/20 03:27 Order name: Urine Dipstick-Ancillary; Complete Time: 15:31 [facility] 04/20 00:44 Order name: EKG; Complete Time: 00:44 [facility] 04/20 00:44 Order name: EKG - Nurse/Tech; Complete Time: 01:20 [facility] 04/20 00:44 Order name: IV Saline Lock; Complete Time: 01:20 [facility] 04/20 00:44 Order name: Labs collected and sent; Complete Time: 01:20 [facility] 04/20 00:44 Order name: Urine Dipstick-Ancillary (obtain specimen); Complete Time: 03:24 [facility] 04/20 07:20 Order name: Diet Regular; Complete Time: 07:20 aa5 04/20 12:51 Order name: Diet Regular; Complete Time: 12:51 aj Administered Medications: 00:59 Drug: NS 0.9% 1000 ml Route: IV; Rate: 1 bolus; Site: left antecubital; mg2 02:40 Follow up: Response: No adverse reaction; IV Status: Completed infusion mg2 Disposition: 16:12 Co-signature as Attending Physician, Giacomo Khan MD I agree with the assessment and [facility] plan of care. Disposition: 04/20/18 15:32 Discharged to Home. Impression: Major depressive disorder, recurrent. - Condition is Stable. - Discharge Instructions: Depression, Adult. - Medication Reconciliation Form, Thank You Letter, Antibiotic Education, Prescription Opioid Use form. - Follow up: Private Physician; When: 1 - 2 days; Reason: Recheck today's complaints. - Problem is new. - Symptoms have improved. Signatures: Dispatcher [facility] Nini Rose, RN RN dm5 Giacomo Khan MD MD cha Chretien, Felicia RN RN Giacomo Elkins, PA Adam Palacios cp RN RN mg2 Corrections: (The following items were deleted from the chart) 15:31 01:13 04/20/2018 01:13 Transfer ordered to Psych Facility. Diagnosis is Major cp depressive disorder, recurrent; Suicidal ideations; Suicide attempt. Reason for transfer: Higher level of care. Accepting physician is to psych. Condition is Stable. Problem is new. Symptoms have improved. [facility] 16:01 15:32 04/20/2018 15:32 Discharged to Home. Impression: Major depressive disorder, dm5 recurrent. Condition is Stable. Forms are Medication Reconciliation Form, Thank You Letter, Antibiotic Education, Prescription Opioid Use. Follow up: Private Physician; When: 1 - 2 days; Reason: Recheck today's complaints. Problem is new. Symptoms have improved. cp
[2018-04-20 01:18] LABS: Absolute Lymphocytes (CBC) 2.7 K/uL (0.7-4.9); Absolute Monocytes 0.7 K/uL (0.1-1.3); Absolute Neutrophil 7.3 K/uL (1.8-8.0); Basophils % 0.3 % (0-1.3); Eosinophils % 0.5 % (0-4.4); Hematocrit 41.1 % (39.6-49.0); Lymphocytes % 25.1 % (15.3-44.8); MCH 31.5 pg (27.0-35.0); MCV 91.2 fL (80-100); MPV 8.8 fL (7.6-11.3); Monocytes % 6.2 % (3.3-12.3)
[2018-04-20 01:22] LABS: Protime INR 1.18
[2018-04-20 02:20] LABS: ALT/SGPT 26 U/L (12-78); AST/SGOT 18 U/L (15-37); Albumin 3.4 g/dL (3.4-5.0); Alkaline Phosphatase 66 U/L (45-117); BUN Blood Urea Nitrogen 16 mg/dL (7-18); Bicarbonate 32 mmol/L (21-32); Bilirubin Direct < 0.1 mg/dL (0-0.2); Bilirubin Total 0.2 mg/dL (0.2-1.0); Glucose Level 103 mg/dL (74-106); Potassium 4.1 mmol/L (3.5-5.1); Protein, Total 7.4 g/dL (6.4-8.2); Sodium Level 145 mmol/L (136-145)
[2018-04-20 03:35] LABS: Alcohol Serum/Plasma < 3 mg/dL (0-3)
[2018-04-20 04:43] LABS: Barbiturates NEGATIVE (NEGATIVE); Benzodiazepines NEGATIVE (NEGATIVE); Cocaine NEGATIVE (NEGATIVE); METHAMPHETAM NEGATIVE (NEGATIVE); Methadone NEGATIVE (NEGATIVE); Opiates NEGATIVE (NEGATIVE); Phencyclidine NEGATIVE (NEGATIVE); THC Cannibis NEGATIVE (NEGATIVE)
[2018-04-20 05:32] LABS: Urine Blood NEGATIVE (NEG); Urine Glucose NEGATIVE (NEG); Urine Protein NEGATIVE (NEG); Urine pH 5.5 (5.0-7.0)
--- NOTE | 2018-04-20 06:33 | EKG ---
Test Date: 2018-04-20 Test Time: 01:22:58 Customs Compliance Manager: MEASUREMENT RESULTS: Intervals: Rate: 76 OK: 124 QRSD: 78 QT: 394 QTc: 443 [place]: P: 40 OK: 124 QRS: 10 T: 37 INTERPRETIVE STATEMENTS: Normal sinus rhythm Normal ECG Compared to ECG 02/21/2018 18:51:36 Prolonged QT interval no longer present Electronically Signed On 04-20-18 06:32:26 CDT by Zan Rodriguez
== END 2018-04-20 16:01 | disposition home or self-care (01) ==
LOC: ER 00:12
DX: F33.9 Major depressive disorder, recurrent, unspecified (principal); T14.91XA Suicide attempt, initial encounter; T45.0X2A Poisoning by antiallergic and antiemetic drugs, intentional self-harm, initial encounter; Y92.9 Unspecified place or not applicable; Y93.89 Activity, other specified; Y99.9 Unspecified external cause status
CPT/HCPCS: 36415; 80048; 80076; 80307; 80320; 80329; 81003; 84439; 84443; 85025; 85610; 85730; 93005; 96360; 96361; 99284; J7030

== ENCOUNTER 2018-04-21 12:06 | Emergency (ER) | payer SELFPAY ==
[2018-04-21] MEDS ORDERED: NA CHLORIDE 0.9% 1,000 ML ONE (12:12)
[2018-04-21 12:34] LABS: Absolute Monocytes 0.6 K/uL (0.1-1.3); Absolute Neutrophil 4.8 K/uL (1.8-8.0); Basophils % 0.4 % (0-1.3); Hematocrit 39.6 % (39.6-49.0); Lymphocytes % 26.7 % (15.3-44.8); MCH 31.7 pg (27.0-35.0); MCV 90.3 fL (80-100); MPV 8.4 fL (7.6-11.3); Monocytes % 8.7 % (3.3-12.3); RBC Red Blood Cell Count 4.39 M/uL (4.33-5.43)
[2018-04-21 12:38] LABS: Protime INR 1.18
[2018-04-21 14:00] LABS: ALT/SGPT 25 U/L (12-78); AST/SGOT 16 U/L (15-37); Albumin 4.1 g/dL (3.4-5.0); Alkaline Phosphatase 69 U/L (45-117); BUN Blood Urea Nitrogen 11 mg/dL (7-18); Bicarbonate 30 mmol/L (21-32); Bilirubin Direct < 0.1 mg/dL (0-0.2); Bilirubin Total 0.3 mg/dL (0.2-1.0); Glucose Level 96 mg/dL (74-106); Potassium 3.3 mmol/L (3.5-5.1); Protein, Total 7.9 g/dL (6.4-8.2); Sodium Level 140 mmol/L (136-145)
[2018-04-21 14:01] LABS: Alcohol Serum/Plasma < 3 mg/dL (0-3)
[2018-04-21 14:42] LABS: Barbiturates NEGATIVE (NEGATIVE); Benzodiazepines NEGATIVE (NEGATIVE); Cocaine NEGATIVE (NEGATIVE); METHAMPHETAM NEGATIVE (NEGATIVE); Methadone NEGATIVE (NEGATIVE); Opiates NEGATIVE (NEGATIVE); Phencyclidine NEGATIVE (NEGATIVE); THC Cannibis NEGATIVE (NEGATIVE)
[2018-04-21 14:53] LABS: Urine Blood NEGATIVE (NEG); Urine Glucose NEGATIVE (NEG); Urine Protein TRACE (NEG); Urine Specific Gravity 1.025 (1.005-1.030)
[2018-04-21] MEDS ORDERED: KCL 20 MEQ/100 mL IVPB 20 MEQ/100 ML BAG IV ONE (15:13)
[2018-04-21] MEDS ORDERED: NA CHLORIDE 0.9% 250 ML ONE (15:13)
--- NOTE | 2018-04-21 18:15 | ER ---
Nurse's Notes [facility] Name: Som Clements Age: 37 yrs Sex: Male : 1980 Arrival Date: 04/21/2018 Time: 12:07 Bed 5 Private MD: Diagnosis: Suicidal ideations Presentation: 04/21 12:00 Presenting complaint: EMS states: pt took 100 25 mg Benadryl today around 0200. Pt was sv discharged yesterday from our facility for the same reason for visit. SR on monitor. Transition of care: patient was not received from another setting of care. Onset of symptoms was April 21, 2018 at 02:00. Risk Assessment: Do you want to hurt yourself or someone else? Patient reports desire/thoughts of hurting themselves or someone else. Provider notified. Initial Sepsis Screen: Does the patient meet any 2 criteria? No. Patient's initial sepsis screen is negative. Does the patient have a suspected source of infection? No. Patient's initial sepsis screen is negative. Care prior to arrival: None. 12:00 Method Of Arrival: EMS: [facility] sv 12:00 Acuity: TA 2 sv Historical: - Allergies: 12:15 NKDA; sv - Home Meds: 12:15 None [Active]; sv - PMHx: 12:15 Anxiety; Bipolar disorder; Depression; Schizophrenia; sv - PSHx: 12:15 None; sv - Immunization history:: Adult Immunizations up to date. - Social history:: Smoking status: Patient/guardian denies using tobacco. - Family history:: not pertinent. - Ebola Screening: : No symptoms or risks identified at this time. - Hospitalizations: : No recent hospitalization is reported. Screenin:26 Abuse screen: Denies threats or abuse. Denies injuries from another. Nutritional sv screening: No deficits noted. Tuberculosis screening: No symptoms or risk factors identified. Fall Risk None identified. Assessment: 12:10 Reassessment: Spoke with Irineo with poison control. Stated that he's out of the window. sv Recommends a toxic workup and to watch for NOODLE [employer]ER depression, tachycardia, dilated pupils. 12:50 Reassessment: Pt given lunch tray. sv 13:15 Reassessment: Patient appears in no apparent distress at this time. No changes from sv previously documented assessment. Patient and/or family updated on plan of care and expected duration. Pain level reassessed. Pt appears to be sleeping with eyes closed. Respirations even and unlabored. 15:00 Reassessment: Patient appears in no apparent distress at this time. No changes from sv previously documented assessment. Patient and/or family updated on plan of care and expected duration. Pain level reassessed. Patient is alert, oriented x 3, equal unlabored respirations, skin warm/dry/pink. 16:51 Reassessment: Sue from [place] [facility] poison control called for an update on the pt. sv 18:39 Reassessment: Patient appears in no apparent distress at this time. No changes from sv previously documented assessment. Patient and/or family updated on plan of care and expected duration. Pain level reassessed. Patient is alert, oriented x 3, equal unlabored respirations, skin warm/dry/pink. 19:23 Reassessment: Patient and/or family updated on plan of care and expected duration. Pain ea level reassessed. Pt currently resting with eyes closed, respirations even and unlabored, chest expansions even and symmetrical. 21:34 Reassessment: Nurse to nurse report called to Natalia CULLEN at [facility]. lp 22:04 Reassessment: Jimena with [facility] called administrative approval by Vanda Peraza at [id number]. 04/22 00:15 Reassessment: No changes from previously documented assessment. Pt resting with eyes ea closed, respirations even and unlabored. Chest expansions even and symmetrical. No s/s of pain or discomfort noted at this time. 01:15 Reassessment: Patient and/or family updated on plan of care and expected duration. Pain ea level reassessed. Patient is alert, oriented x 3, equal unlabored respirations, skin warm/dry/pink. EMS at facility for transfer. Psych: 04/21 12:05 Subjective: Patient's mood is sad, hopeless, Delusions are denied, Hallucinations are sv visual, Having thoughts of suicide. Plan for suicide is overdosing. Objective: Patient is cooperative, Speech is normal, Affect is flat. Interventions: Removed personal items and placed in bag. Patient placed in hospital gown. Searched person for dangerous items. Patient reassessed during use of restraints. Patient is physically safe. Patient's cardiac status is stable. Patient's respirations are even and unlabored. Patient has good circulation in all extremities as indicated by capillary refill < 3 seconds. Patient's ROM assessed and is intact. Patient nutrition and hydration needs will continue to be monitored and addressed. Patient hygiene and elimination needs met. Patient assessed for signs of distress. Patient remains reasonably comfortable at this time. Suicide Risk Assessment: Sad Person Scale: Sex of patient: Male: Score 1 point. Age of patient: Score 0 point if patient falls outside of specified age parameters. Depression: Score 1 point if signs of depression are present. Previous Attempt: Score 1 point if patient has previously attempted suicide. Substance Abuse: Score 0 point if patient does not abuse alcohol or drugs. Rational Thinking: Score 0 point if patient has rational thinking. Social Support: Score 1 point if social support is lacking and/or unavailable. Organized Plan: Score 1 point if patient had a plan in place. Relationship: Score 1 point if patient is , , , or for a single male Chronic Sickness: Score 1 point if patient has illness, chronic, debilitating, or severe. TOTAL POINTS: If total points are 7-10, the proposed clinical action is to hospitalize or commit. Implement suicide precautions. Safety Checks: Personal items have been removed. Door is open. No visitors are present at this time. 12:25 Pt denies substance abuse. sv Overdose: 12:05 Patient took Benadryl 25 mg, 100. Overdose occurred 0200. sv Vital Signs: 12:05 BP 129 / 94; Pulse 84; Resp 16; Temp 98.9; Pulse Ox 98% ; Pain 0/10; sv 13:14 BP 119 / 78; Pulse 75; Resp 16; Pulse Ox 99% on R/A; sv 14:07 BP 102 / 66; Pulse 76; Pulse Ox 99% on R/A; tw2 15:26 BP 117 / 85; Pulse 73; Resp 16; Pulse Ox 100% ; sv 16:01 BP 108 / 77; Pulse 70; Resp 17; Pulse Ox 96% on R/A; mh5 16:31 BP 106 / 75; Pulse 70; Resp 16; Pulse Ox 100% on R/A; mh5 17:00 BP 108 / 70; Pulse 73; Resp 16; Pulse Ox 100% on R/A; mh5 17:30 BP 128 / 90; Pulse 70; Resp 17; Pulse Ox 99% on R/A; mh5 18:00 BP 128 / 90; Pulse 75; Resp 16; Pulse Ox 100% on R/A; mh5 18:30 BP 129 / 94; Pulse 77; Resp 17; Pulse Ox 99% on R/A; mh5 19:00 BP 122 / 85; Pulse 70; Resp 17; Pulse Ox 98% on R/A; mh5 19:15 BP 121 / 87; Pulse 65; Resp 18; Pulse Ox 98% ; jv1 19:16 BP 121 / 87; Pulse 74; Resp 16; Pulse Ox 99% on R/A; mt 19:30 BP 120 / 86; Pulse 66; Resp 16; Pulse Ox 97% on R/A; jv1 20:00 BP 114 / 79; Pulse 62; Resp 16; Pulse Ox 98% on R/A; jv1 20:30 BP 115 / 77; Pulse 61; Resp 17; Pulse Ox 98% on R/A; jv1 21:00 BP 112 / 78; Pulse 64; Resp 17; Temp 98.9; Pulse Ox 98% on R/A; jv1 21:30 BP 104 / 76; Pulse 60; Resp 18; Pulse Ox 98% on R/A; jv1 22:00 BP 118 / 79; Pulse 62; Resp 19; Temp 97.8; Pulse Ox 100% on R/A; jv1 22:30 BP 110 / 60; Pulse 61; Resp 16; Pulse Ox 98% on R/A; jv1 23:00 BP 113 / 80; Pulse 63; Resp 16; Pulse Ox 98% on R/A; jv1 23:30 BP 112 / 69; Pulse 64; Resp 18; Temp 98; Pulse Ox 97% on R/A; jv1 04/22 00:00 BP 112 / 73; Pulse 63; Resp 18; Pulse Ox 97% on R/A; jv1 00:30 BP 117 / 81; Pulse 56; Resp 18; Pulse Ox 99% on R/A; 00:55 BP 117 / 81; Pulse 58; Resp 16; Pulse Ox 99% on R/A; in ED Course: 04/21 12:05 Arm band placed on right wrist. sv 12:07 Patient arrived in ED. sv 12:07 Anthony Sexton MD is Attending Physician. rn 12:07 Milagros Benitez RN is Primary Nurse. sv 12:15 Triage completed. sv 12:15 Safety Checks: Personal items have been removed. The door is open or patient has been sv placed in a hallway bed/chair. There are no family/friend visitors at this time Sitter present at this time. 12:18 Inserted saline lock: 20 gauge in left antecubital area, using aseptic technique. Blood ss collected. 12:26 Patient has correct armband on for positive identification. Placed in gown. Bed in low sv position. Side rails up X2. traffic monitor specialist on. Pulse ox on. NIBP on. Head of bed elevated. 12:30 No apparent distress. sitting upright in bed at this time. Safety Checks: Personal tw2 items have been removed. The door is open or patient has been placed in a hallway bed/chair. Sitter present at this time. 12:45 Safety Checks: Personal items have been removed. The door is open or patient has been tw2 placed in a hallway bed/chair. Sitter present at this time. 13:00 Safety Checks: Personal items have been removed. The door is open or patient has been tw2 placed in a hallway bed/chair. Sitter present at this time. 13:02 EKG done, by staff cytotechnologist. reviewed by Anthony Sexton MD. sm3 13:15 Safety Checks: Personal items have been removed. The door is open or patient has been sv placed in a hallway bed/chair. There are no family/friend visitors at this time Sitter present at this time. 13:30 No apparent distress. Resting quietly. Safety Checks: Personal items have been removed. sv The door is open or patient has been placed in a hallway bed/chair. There are no family/friend visitors at this time Sitter present at this time. 13:45 Safety Checks: Personal items have been removed. The door is open or patient has been tw2 placed in a hallway bed/chair. Sitter present at this time. 14:00 No apparent distress. Resting quietly. Safety Checks: Personal items have been removed. tw2 The door is open or patient has been placed in a hallway bed/chair. Sitter present at this time. 14:15 No apparent distress. Resting quietly. Safety Checks: Personal items have been removed. sv The door is open or patient has been placed in a hallway bed/chair. There are no family/friend visitors at this time Sitter present at this time. 14:30 Safety Checks: Personal items have been removed. The door is open or patient has been sv placed in a hallway bed/chair. There are no family/friend visitors at this time Sitter present at this time. 14:45 Safety Checks: Personal items have been removed. The door is open or patient has been sv placed in a hallway bed/chair. There are no family/friend visitors at this time Sitter present at this time. 15:00 Safety Checks: Personal items have been removed. The door is open or patient has been sv placed in a hallway bed/chair. There are no family/friend visitors at this time Sitter present at this time. 15:15 Safety Checks: Personal items have been removed. The door is open or patient has been sv placed in a hallway bed/chair. There are no family/friend visitors at this time Sitter present at this time. 15:30 Safety Checks: Personal items have been removed. The door is open or patient has been sv placed in a hallway bed/chair. There are no family/friend visitors at this time Sitter present at this time. 15:38 called and spoke with Cass at the [facility] asked she will be calling out a eb screener to come evaluate the patient for potential transfer. 15:45 Safety Checks: Personal items have been removed. The door is open or patient has been sv placed in a hallway bed/chair. There are no family/friend visitors at this time Sitter present at this time. 16:00 Safety Checks: Personal items have been removed. The door is open or patient has been sv placed in a hallway bed/chair. There are no family/friend visitors at this time Sitter present at this time. 16:00 Safety checks: Items removed: yes. Door open/sign placed on door: yes. Family/friend mh5 present: no. Sitter present: Yes. 16:15 Safety Checks: Personal items have been removed. The door is open or patient has been sv placed in a hallway bed/chair. There are no family/friend visitors at this time Sitter present at this time. 16:15 Safety checks: Items removed: yes. Door open/sign placed on door: yes. Family/friend mh5 present: no. Sitter present: Yes. 16:23 Jaye from the [facility] here to screen patient. eb 16:24 [facility] IN WITH PT. mh5 16:30 Safety Checks: Personal items have been removed. The door is open or patient has been sv placed in a hallway bed/chair. There are no family/friend visitors at this time Sitter present at this time. 16:30 Safety checks: Items removed: yes. Door open/sign placed on door: yes. Family/friend mh5 present: no. Sitter present: Yes. 16:35 faxed pt's notes to the intake department at the following facilities: [facility], [facility], [facility], [facility], [facility], [facility], [facility], [facility], [facility], [facility], [facility] and [facility]. 16:45 No apparent distress. Safety Checks: Personal items have been removed. The door is open sv or patient has been placed in a hallway bed/chair. There are no family/friend visitors at this time Sitter present at this time. 16:45 Safety checks: Items removed: yes. Door open/sign placed on door: yes. Family/friend mh5 present: no. Sitter present: Yes. 17:00 Safety Checks: Personal items have been removed. The door is open or patient has been sv placed in a hallway bed/chair. There are no family/friend visitors at this time Sitter present at this time. 17:00 Safety checks: Items removed: yes. Door open/sign placed on door: yes. Family/friend mh5 present: no. Sitter present: Yes. 17:15 Safety Checks: Personal items have been removed. The door is open or patient has been sv placed in a hallway bed/chair. There are no family/friend visitors at this time Sitter present at this time. 17:15 Safety checks: Items removed: yes. Door open/sign placed on door: yes. Family/friend mh5 present: no. Sitter present: Yes. 17:30 Safety Checks: Personal items have been removed. The door is open or patient has been sv placed in a hallway bed/chair. There are no family/friend visitors at this time Sitter present at this time. 17:30 Safety checks: Items removed: yes. Door open/sign placed on door: yes. Family/friend mh5 present: no. Sitter present: Yes. 17:45 Safety Checks: Personal items have been removed. The door is open or patient has been sv placed in a hallway bed/chair. There are no family/friend visitors at this time Sitter present at this time. 17:45 Safety checks: Items removed: yes. Door open/sign placed on door: yes. Family/friend mh5 present: no. Sitter present: Yes. 18:00 Safety Checks: Personal items have been removed. The door is open or patient has been sv placed in a hallway bed/chair. There are no family/friend visitors at this time Sitter present at this time. 18:00 Safety checks: Items removed: yes. Door open/sign placed on door: yes. Family/friend mh5 present: no. Sitter present: Yes. 18:15 Safety Checks: Personal items have been removed. The door is open or patient has been sv placed in a hallway bed/chair. There are no family/friend visitors at this time Sitter present at this time. 18:15 Safety checks: Items removed: yes. Door open/sign placed on door: yes. Family/friend mh5 present: no. Sitter present: Yes. 18:30 Safety Checks: Personal items have been removed. The door is open or patient has been sv placed in a hallway bed/chair. There are no family/friend visitors at this time Sitter present at this time. 18:30 Safety checks: Items removed: yes. Door open/sign placed on door: yes. Family/friend mh5 present: no. Sitter present: Yes. 18:44 [facility] called to speak to the nurse regarding transfer. eb 18:45 Safety checks: Items removed: yes. Door open/sign placed on door: yes. Family/friend mh5 present: no. Sitter present: Yes. 18:50 faxed over the exclusionary to [facility]. eb 19:00 Safety Checks: Personal items have been removed. The door is open or patient has been jv1 placed in a hallway bed/chair. There are no family/friend visitors at this time Sitter present at this time. 19:00 Safety checks: Items removed: yes. Door open/sign placed on door: yes. Family/friend mh5 present: no. Sitter present: Yes. 19:02 Report given to Lily CULLEN. sv 19:03 Primary Nurse role handed off by Milagros Benitez RN sv 19:06 Lily Pride RN is Primary Nurse. ea 19:15 Safety Checks: Personal items have been removed. The door is open or patient has been jv1 placed in a hallway bed/chair. There are no family/friend visitors at this time Sitter present at this time. 19:30 Safety Checks: Personal items have been removed. The door is open or patient has been jv1 placed in a hallway bed/chair. There are no family/friend visitors at this time Sitter present at this time. 19:45 Safety Checks: Personal items have been removed. The door is open or patient has been jv1 placed in a hallway bed/chair. There are no family/friend visitors at this time Sitter present at this time. 20:00 Safety Checks: Personal items have been removed. The door is open or patient has been jv1 placed in a hallway bed/chair. There are no family/friend visitors at this time Sitter present at this time. 20:15 Safety Checks: Personal items have been removed. The door is open or patient has been jv1 placed in a hallway bed/chair. There are no family/friend visitors at this time Sitter present at this time. 20:30 Safety Checks: Personal items have been removed. The door is open or patient has been jv1 placed in a hallway bed/chair. There are no family/friend visitors at this time Sitter present at this time. 20:45 Safety Checks: Personal items have been removed. The door is open or patient has been jv1 placed in a hallway bed/chair. There are no family/friend visitors at this time Sitter present at this time. 21:00 Safety Checks: Personal items have been removed. The door is open or patient has been jv1 placed in a hallway bed/chair. There are no family/friend visitors at this time Sitter present at this time. 21:15 Safety Checks: Personal items have been removed. The door is open or patient has been jv1 placed in a hallway bed/chair. There are no family/friend visitors at this time Sitter present at this time. 21:29 [facility] call for Nurse to nurse\E\. ms 21:30 Safety Checks: Personal items have been removed. The door is open or patient has been jv1 placed in a hallway bed/chair. There are no family/friend visitors at this time Sitter present at this time. 21:45 Safety Checks: Personal items have been removed. The door is open or patient has been jv1 placed in a hallway bed/chair. There are no family/friend visitors at this time Sitter present at this time. 21:47 [facility] call for Dr Daniels. ms 22:00 Safety Checks: Personal items have been removed. The door is open or patient has been jv1 placed in a hallway bed/chair. There are no family/friend visitors at this time Sitter present at this time. 22:15 Safety Checks: Personal items have been removed. The door is open or patient has been jv1 placed in a hallway bed/chair. There are no family/friend visitors at this time Sitter present at this time. 22:30 Safety Checks: Personal items have been removed. The door is open or patient has been jv1 placed in a hallway bed/chair. There are no family/friend visitors at this time Sitter present at this time. 22:45 Safety Checks: Personal items have been removed. The door is open or patient has been jv1 placed in a hallway bed/chair. There are no family/friend visitors at this time Sitter present at this time. 23:00 Safety Checks: Personal items have been removed. The door is open or patient has been jv1 placed in a hallway bed/chair. There are no family/friend visitors at this time Sitter present at this time. 23:15 Safety Checks: Personal items have been removed. The door is open or patient has been jv1 placed in a hallway bed/chair. There are no family/friend visitors at this time Sitter present at this time. 23:30 Safety Checks: Personal items have been removed. The door is open or patient has been jv1 placed in a hallway bed/chair. There are no family/friend visitors at this time Sitter present at this time. 23:45 Safety Checks: Personal items have been removed. The door is open or patient has been jv1 placed in a hallway bed/chair. There are no family/friend visitors at this time Sitter present at this time. 04/22 00:00 Safety Checks: Personal items have been removed. The door is open or patient has been jv1 placed in a hallway bed/chair. There are no family/friend visitors at this time Sitter present at this time. 00:15 Safety Checks: Personal items have been removed. The door is open or patient has been wh placed in a hallway bed/chair. There are no family/friend visitors at this time Sitter present at this time. 00:30 Safety Checks: Personal items have been removed. The door is open or patient has been wh placed in a hallway bed/chair. There are no family/friend visitors at this time Sitter present at this time. 01:35 No provider procedures requiring assistance completed. IV discontinued, intact, ea bleeding controlled, No redness/swelling at site. Pressure dressing applied. Administered Medications: 04/21 12:18 Drug: NS 0.9% 1000 ml Route: IV; Rate: 1000 ml; Site: left antecubital; ss 13:00 Follow up: Response: No adverse reaction; IV Status: Completed infusion; IV Intake: sv 1000ml 13:10 Drug: Potassium Chloride 20 mEq Route: IV; Rate: calculated rate; Site: left sv antecubital; 15:00 Follow up: Response: No adverse reaction; IV Status: Completed infusion; IV Intake: sv 100ml Intake: 12:25 PO: 200ml (Water); Total: 200ml. sv 13:00 IV: 1000ml; Total: 1200ml. sv 15:00 IV: 100ml; Total: 1300ml. sv Outcome: 18:15 ER care complete, transfer ordered by MD. cullen 04/22 01:36 Transferred by ground EMS to other acute care facility, Transfer form completed. ea Condition: stable Instructed on the need for transfer. 01:37 Patient left the ED. ea Signatures: Milagros Benitez RN Lia Nugent ms, Roman, MD MD rn Smirch, Shelby, RN RN Natalia Campos RN RN lp1 Kae Umanzor RN RN ak1 Paris Rosales RN RN 2 Lia Durant [facility] Lily Pride RN RN ea Habalo, Winsy wh Botello, Elizabeth eb Montes Delia 3 Gayatri Joshi jv1 Corrections: (The following items were deleted from the chart) 04/21 16:04 04:00 Safety checks: Items removed: yes. Door open/sign placed on door: yes. mh5 Family/friend present: no. Sitter present: Yes. 5 21:46 21:44 Safety Checks: Personal items have been removed. The door is open or patient has jv1 been placed in a hallway bed/chair. There are no family/friend visitors at this time Sitter present at this time. jv1 04/22 00:04 04/21 22:30 BP 97 / 59; Pulse 61bpm; Resp 16bpm; Pulse Ox 98% RA; jv1 jv1
--- NOTE | 2018-04-21 18:16 | EDPHYS ---
Physician Documentation [facility] Name: Som Clements Age: 37 yrs Sex: Male : 1980 Arrival Date: 04/21/2018 Time: 12:07 Bed 5 Private MD: ED Physician Anthony Sexton HPI: 04/21 12:23 This 37 yrs old Male presents to ER via EMS with complaints of Overdose, rn Suicidal Ideation. 12:23 The patient presents to the emergency department after a known overdose. Context: rn Method: the patient has a confirmed or suspected ingestion, Time: at 02:00, the OD/poisoning occurred at Previous OD/poisoning history: yes. Severity of symptoms: At their worst the symptoms were moderate in the emergency department the symptoms are unchanged. The patient has experienced similar episodes in the past. Reports suicidal ideation, overdosed on benadryl this AM, states took 100 tablets of 25mg benadryl, full bottle, now empty, at 0200, seen here yesterday for benadryl overdose as well, seen by mental health, deemed ok to go home, patient reports situation hasn't changed, homeless. + visual hallucinations. . Historical: - Allergies: 12:15 NKDA; sv - Home Meds: 12:15 None [Active]; sv - PMHx: 12:15 Anxiety; Bipolar disorder; Depression; Schizophrenia; sv - PSHx: 12:15 None; sv - Immunization history:: Adult Immunizations up to date. - Social history:: Smoking status: Patient/guardian denies using tobacco. - Family history:: not pertinent. - Ebola Screening: : No symptoms or risks identified at this time. - Hospitalizations: : No recent hospitalization is reported. ROS: 12:23 Constitutional: Negative for fever, chills, and weight loss, Eyes: Negative for injury, rn pain, redness, and discharge, Neck: Negative for injury, pain, and swelling, Cardiovascular: Negative for chest pain, palpitations, and edema, Respiratory: Negative for shortness of breath, cough, wheezing, and pleuritic chest pain, Abdomen/GI: Negative for abdominal pain, nausea, vomiting, diarrhea, and constipation, MS/Extremity: Negative for injury and deformity, Skin: Negative for injury, rash, and discoloration, Neuro: Negative for headache, weakness, numbness, tingling, and seizure, Psych: + suicidal ideation Exam: 12:23 Constitutional: This is a well developed, well nourished patient who is awake, alert, rn and in no acute distress. Head/Face: Normocephalic, atraumatic. Eyes: Pupils equal round and reactive to light, extra-ocular motions intact. Lids and lashes normal. Conjunctiva and sclera are non-icteric and not injected. Cornea within normal limits. Periorbital areas with no swelling, redness, or edema. Neck: Trachea midline, no thyromegaly or masses palpated, and no cervical lymphadenopathy. Supple, full range of motion without nuchal rigidity, or vertebral point tenderness. No Meningismus. Cardiovascular: Regular rate and rhythm with a normal S1 and S2. No gallops, murmurs, or rubs. Normal PMI, no JVD. No pulse deficits. Respiratory: Lungs have equal breath sounds bilaterally, clear to auscultation and percussion. No rales, rhonchi or wheezes noted. No increased work of breathing, no retractions or nasal flaring. Abdomen/GI: Soft, non-tender, with normal bowel sounds. No distension or tympany. No guarding or rebound. No evidence of tenderness throughout. MS/ Extremity: Pulses equal, no cyanosis. Neurovascular intact. Full, normal range of motion. Equal circumference. Neuro: Awake and alert, GCS 15, oriented to person, place, time, and situation. Cranial nerves II-XII grossly intact. Motor strength 5/5 in all extremities. Sensory grossly intact. Cerebellar exam normal. Normal gait. Vital Signs: 12:05 BP 129 / 94; Pulse 84; Resp 16; Temp 98.9; Pulse Ox 98% ; Pain 0/10; sv 13:14 BP 119 / 78; Pulse 75; Resp 16; Pulse Ox 99% on R/A; sv 14:07 BP 102 / 66; Pulse 76; Pulse Ox 99% on R/A; tw2 15:26 BP 117 / 85; Pulse 73; Resp 16; Pulse Ox 100% ; sv 16:01 BP 108 / 77; Pulse 70; Resp 17; Pulse Ox 96% on R/A; mh5 16:31 BP 106 / 75; Pulse 70; Resp 16; Pulse Ox 100% on R/A; mh5 17:00 BP 108 / 70; Pulse 73; Resp 16; Pulse Ox 100% on R/A; mh5 17:30 BP 128 / 90; Pulse 70; Resp 17; Pulse Ox 99% on R/A; mh5 18:00 BP 128 / 90; Pulse 75; Resp 16; Pulse Ox 100% on R/A; mh5 18:30 BP 129 / 94; Pulse 77; Resp 17; Pulse Ox 99% on R/A; mh5 19:00 BP 122 / 85; Pulse 70; Resp 17; Pulse Ox 98% on R/A; mh5 19:15 BP 121 / 87; Pulse 65; Resp 18; Pulse Ox 98% ; jv1 19:16 BP 121 / 87; Pulse 74; Resp 16; Pulse Ox 99% on R/A; mt 19:30 BP 120 / 86; Pulse 66; Resp 16; Pulse Ox 97% on R/A; jv1 20:00 BP 114 / 79; Pulse 62; Resp 16; Pulse Ox 98% on R/A; jv1 20:30 BP 115 / 77; Pulse 61; Resp 17; Pulse Ox 98% on R/A; jv1 21:00 BP 112 / 78; Pulse 64; Resp 17; Temp 98.9; Pulse Ox 98% on R/A; jv1 21:30 BP 104 / 76; Pulse 60; Resp 18; Pulse Ox 98% on R/A; jv1 22:00 BP 118 / 79; Pulse 62; Resp 19; Temp 97.8; Pulse Ox 100% on R/A; jv1 22:30 BP 110 / 60; Pulse 61; Resp 16; Pulse Ox 98% on R/A; jv1 23:00 BP 113 / 80; Pulse 63; Resp 16; Pulse Ox 98% on R/A; jv1 23:30 BP 112 / 69; Pulse 64; Resp 18; Temp 98; Pulse Ox 97% on R/A; jv1 04/22 00:00 BP 112 / 73; Pulse 63; Resp 18; Pulse Ox 97% on R/A; jv1 00:30 BP 117 / 81; Pulse 56; Resp 18; Pulse Ox 99% on R/A; wh 00:55 BP 117 / 81; Pulse 58; Resp 16; Pulse Ox 99% on R/A; mt MDM: 04/21 12:07 Patient medically screened. rn 13:41 ED course: PT still awake, feels ok, normal vitals. . rn 15:25 ED course: Pt awake, doing well, stable vitals, replacing potassium.. rn 18:10 Differential diagnosis: Ingestion/exposure to benadryl. Data reviewed: vital signs, rn nurses notes, lab test result(s), EKG, and as a result, I will admit patient. Counseling: I had a detailed discussion with the patient and/or guardian regarding: the historical points, exam findings, and any diagnostic results supporting the discharge/admit diagnosis, lab results, radiology results, the need to transfer to another facility. ED course: Pt still asymptomatic, unsure if patient actually ingested that many benadryl, as per mental health professional has been evaluated multiple times and story each time is suicidal ideation with overdose of 100 benadryl, vital signs normal and no clinical signs of intoxication of benadryl. Mental health recommends inpatient psychiatric admission.. 19:00 ED course: patient signed out to me at shift change. psych and homeless. Reportedly ps1 took 100 Benadryl tabs at 0200. Normal vitals. Physiology inconsistent with history. Plan for [facility]. . 04/21 12:07 Order name: Acetaminophen; Complete Time: 15: rn 04/21 12:07 Order name: Basic Metabolic Panel; Complete Time: 15: rn 04/21 12:07 Order name: CBC with Diff; Complete Time: 13: rn 04/21 12:07 Order name: ETOH Level; Complete Time: 15: rn 04/21 12:07 Order name: Hepatic Function; Complete Time: 15: rn 04/21 12:07 Order name: PT-INR; Complete Time: 13: rn 04/21 12:07 Order name: Ptt, Activated; Complete Time: 13: rn 04/21 12:07 Order name: Salicylate; Complete Time: 15: rn 04/21 12:07 Order name: Urine Drug Screen; Complete Time: 15: rn 04/21 12:07 Order name: EKG; Complete Time: 12: rn 04/21 12:24 Order name: Diet Regular; Complete Time: 12:24 sv 04/21 14:22 Order name: Urine Dipstick--Ancillary (enter results); Complete Time: 15: eb 04/21 12:07 Order name: EKG - Nurse/Tech; Complete Time: 12:48 rn 04/21 12:07 Order name: IV Saline Lock; Complete Time: 12:18 rn 04/21 12:07 Order name: Labs collected and sent; Complete Time: 12:48 rn 04/21 12:07 Order name: Urine Dipstick-Ancillary (obtain specimen); Complete Time: 15:50 rn 04/21 17:05 Order name: Diet Regular; Complete Time: 17:05 sv Administered Medications: 12:18 Drug: NS 0.9% 1000 ml Route: IV; Rate: 1000 ml; Site: left antecubital; 13:00 Follow up: Response: No adverse reaction; IV Status: Completed infusion; IV Intake: sv 1000ml 13:10 Drug: Potassium Chloride 20 mEq Route: IV; Rate: calculated rate; Site: left sv antecubital; 15:00 Follow up: Response: No adverse reaction; IV Status: Completed infusion; IV Intake: sv 100ml Disposition: 04/21/18 18:15 Transfer ordered to Psych Facility. Diagnosis is Suicidal ideations. - Reason for transfer: Higher level of care. - Accepting physician is . - Condition is Stable. - Problem is an ongoing problem. - Symptoms are unchanged. Signatures: Dispatcher [employer] Milagros Cotton RN RN sv Nieto, Roman, MD MD rn Smirch, Shelby, RN RN ss Antunez, Elena, RN RN ea Singer, Phillip, MD MD ps1 Corrections: (The following items were deleted from the chart) 04/22 01:37 04/21 18:15 04/21/2018 18:15 Transfer ordered to Psych Facility. Diagnosis is Suicidal ea ideations. Reason for transfer: Higher level of care. Accepting physician is . Condition is Stable. Problem is an ongoing problem. Symptoms are unchanged. rn
--- NOTE | 2018-04-21 21:36 | EKG ---
Test Date: 2018-04-21 Test Time: 12:28:30 [employer] Shop Helper: MARYJO MEASUREMENT RESULTS: Intervals: Rate: 72 [place]: 122 QRSD: 84 QT: 424 QTc: 464 [place]: P: 55 AZ: 122 QRS: 32 T: 53 INTERPRETIVE STATEMENTS: Normal sinus rhythm Normal ECG Compared to ECG 04/20/2018 01:22:58 No significant changes Electronically Signed On 04-21-18 21:36:22 CDT by Zan Rodriguez
== END 2018-04-22 01:37 ==
LOC: ER 12:06
DX: R45.851 Suicidal ideations (principal)
CPT/HCPCS: 36415; 80048; 80076; 80307; 80320; 80329; 81003; 85025; 85610; 85730; 93005; 96361; 96365; 96366; 99285; J7030

== ENCOUNTER 2018-04-25 00:07 | Emergency (ER) | payer SELFPAY ==
[2018-04-25 00:42] LABS: Absolute Lymphocytes (CBC) 2.7 K/uL (0.7-4.9); Absolute Monocytes 0.5 K/uL (0.1-1.3); Absolute Neutrophil 4.3 K/uL (1.8-8.0); Basophils % 0.6 % (0-1.3); Eosinophils % 0.4 % (0-4.4); Hematocrit 39.2 % (39.6-49.0); Lymphocytes % 35.5 % (15.3-44.8); MCH 31.9 pg (27.0-35.0); MCV 91.1 fL (80-100); MPV 8.7 fL (7.6-11.3); Monocytes % 6.8 % (3.3-12.3)
[2018-04-25 00:46] LABS: Protime INR 1.03
[2018-04-25 01:09] LABS: ALT/SGPT 21 U/L (12-78); AST/SGOT 14 U/L (15-37); Albumin 3.6 g/dL (3.4-5.0); Alkaline Phosphatase 64 U/L (45-117); BUN Blood Urea Nitrogen 12 mg/dL (7-18); Bicarbonate 30 mmol/L (21-32); Bilirubin Direct < 0.1 mg/dL (0-0.2); Bilirubin Total 0.2 mg/dL (0.2-1.0); Glucose Level 112 mg/dL (74-106); Potassium 3.7 mmol/L (3.5-5.1); Protein, Total 7.3 g/dL (6.4-8.2); Sodium Level 142 mmol/L (136-145)
[2018-04-25 01:10] LABS: Alcohol Serum/Plasma < 3 mg/dL (0-3)
[2018-04-25] MEDS ORDERED: NA CHLORIDE 0.9% 1,000 ML ONE ×2 (01:35→02:20)
[2018-04-25] MEDS ORDERED: RSI MEDICATION KIT IV ONE (02:20)
[2018-04-25] MEDS ORDERED: PROPOFOL 1,000 MG/100 ML VIAL IV ONE ×2 (02:20→06:06)
[2018-04-25] MEDS ORDERED: LORazepam 2 MG/ML VIAL ONE ×3 (02:49→05:38)
[2018-04-25] MEDS ORDERED: MIDAZOLAM HCL 2 MG/2 ML INJ ONE (03:23)
[2018-04-25 03:26] LABS: Arterial Blood Carboxyhemoglob 0.4 % (0-1.5); Blood Gas Oxyhemoglobin 98.3 % (94-97); Blood O2 Saturation 99.7 % (92-98.5)
[2018-04-25] MEDS ORDERED: MORPHINE 4 MG/ML SYR ONE (03:47)
[2018-04-25 04:02] LABS: Barbiturates NEGATIVE (NEGATIVE); Benzodiazepines NEGATIVE (NEGATIVE); Cocaine NEGATIVE (NEGATIVE); METHAMPHETAM NEGATIVE (NEGATIVE); Methadone NEGATIVE (NEGATIVE); Opiates NEGATIVE (NEGATIVE); Phencyclidine NEGATIVE (NEGATIVE); THC Cannibis NEGATIVE (NEGATIVE)
--- NOTE | 2018-04-25 04:12 | EDPHYS ---
Physician Documentation [facility] Name: Som Clements Age: 37 yrs Sex: Male : 1980 Arrival Date: 04/25/2018 Time: 00:16 Bed 4 Private MD: ED Physician Anthony Sexton HPI: 04/25 01:11 This 37 yrs old Male presents to ER via EMS with complaints of Possible rn Overdose, Suicidal Ideation. 01:11 The patient presents to the emergency department with a possible overdose. Associated rn signs and symptoms: Pertinent positives: depression, Pertinent negatives: auditory hallucinations, visual hallucinations. Severity of symptoms: At their worst the symptoms were moderate in the emergency department the symptoms are unchanged. The patient has experienced similar episodes in the past. Reports overdosed on approx 150 25mg benadryl, just transferred for the same ingestion a few days ago, discharged after 2 days in psych facility, told them he wasn't ready to leave, left and overdosed on benadryl, still reports suicidal ideation. Took pills approx 1-1.5 hours prior to arrival. Historical: - Allergies: 00:45 NKDA; ea - PMHx: 00:45 Anxiety; Bipolar disorder; Depression; Schizophrenia; ea - PSHx: 00:45 None; ea - Immunization history:: Adult Immunizations up to date. - Social history:: Smoking status: Patient/guardian denies using tobacco. - Ebola Screening: : No symptoms or risks identified at this time. - Family history:: not pertinent. - Hospitalizations: : Patient was recently seen at. ROS: 01:11 Constitutional: Negative for fever, chills, and weight loss, Eyes: Negative for injury, rn pain, redness, and discharge, Neck: Negative for injury, pain, and swelling, Cardiovascular: Negative for chest pain, palpitations, and edema, Respiratory: Negative for shortness of breath, cough, wheezing, and pleuritic chest pain, Abdomen/GI: Negative for abdominal pain, nausea, vomiting, diarrhea, and constipation, MS/Extremity: Negative for injury and deformity, Skin: Negative for injury, rash, and discoloration, Neuro: Negative for headache, weakness, numbness, tingling, and seizure. Exam: 01:11 Constitutional: This is a well developed, well nourished patient who is awake, alert, rn and in no acute distress. Head/Face: Normocephalic, atraumatic. Eyes: Pupils equal round and reactive to light, extra-ocular motions intact. Lids and lashes normal. Conjunctiva and sclera are non-icteric and not injected. Cornea within normal limits. Periorbital areas with no swelling, redness, or edema. Cardiovascular: tachycardic, regular, no murmur Respiratory: Lungs have equal breath sounds bilaterally, clear to auscultation and percussion. No rales, rhonchi or wheezes noted. No increased work of breathing, no retractions or nasal flaring. Abdomen/GI: Soft, non-tender, with normal bowel sounds. No distension or tympany. No guarding or rebound. No evidence of tenderness throughout. MS/ Extremity: Pulses equal, no cyanosis. Neurovascular intact. Full, normal range of motion. Equal circumference. Neuro: Awake and alert, GCS 15, oriented to person, place, time, and situation. Cranial nerves II-XII grossly intact. Motor strength 5/5 in all extremities. Sensory grossly intact. Cerebellar exam normal. Normal gait. Vital Signs: 00:18 BP 123 / 80; Pulse 102; Resp 20 S; Temp 98.7; Pulse Ox 98% on R/A; Weight 70.31 kg; ea Height 5 ft. 11 in. (180.34 cm) (M); Pain 0/10; 01:47 BP 108 / 73; Pulse 118; Resp 20 S; Pulse Ox 100% on R/A; Pain 0/10; ea 01:57 Pulse 137; Resp 20 S; Temp 98.1; Pulse Ox 99% ; ea 02:40 BP 125 / 84; Pulse 131; Resp 18; Pulse Ox 98% on R/A; aa1 03:22 BP 118 / 88; Pulse 99; Resp 18; Temp 96.5(C); Pulse Ox 100% on ETT vent; aa1 04:06 BP 140 / 96; Pulse 105; Resp 14; Temp 96.7(C); Pulse Ox 100% on ETT vent; aa1 04:29 BP 114 / 86; Pulse 102; Resp 16; Temp 96.8(C); Pulse Ox 100% on ETT vent; aa1 05:27 BP 120 / 85; Pulse 81; Resp 16; Temp 97.1(C); Pulse Ox 100% on ETT vent; aa1 00:18 Body Mass Index 21.62 (70.31 kg, 180.34 cm) ea Procedures: 02:51 Intubation: Ventilated with 100% NRB prior to procedure. O2 saturation prior to rn wound was 98 %. Intubated orally using # 4 Nagy blade with 7.5 mm ETT. was successful on first attempt. Cricoid pressure applied during procedure. Tube secured with ETT goddard at right side of mouth measured 23 cm at teeth. Placement verified by CXR, CO2 detector with (+) color change, auscultating bilateral breath sounds, O2 saturation after procedure was 98 %. Patient tolerated well. 04:08 Central Line: the site was prepped with Betadine, in sterile fashion, a triple lumen rn catheter was inserted, in the right femoral vein, in 1 attempts. placement was verified, by blood return, the site was dressed with Tegaderm, using sterile technique, the patient tolerated the procedure, well, brown/16g port not drawing, clamped and taped with "do not use" upon transfer. MDM: 00:17 Patient medically screened. rn 01:58 ED course: Pt becoming more altered, is tachycardic, delirious, + signs of rn anticholinergic poisoning, this hospital does not have physostigmine for treatment, fluids given, will monitor but anticipate transfer, may need to secure airway for safety of transfer. . 02:51 ED course: Pt more obtunded, intubated for airway protection and sonorous respirations. rn Ativan given, will start propofol. . 04:08 Differential diagnosis: Ingestion/exposure to Benadryl. Data reviewed: vital signs, rn nurses notes, lab test result(s), EKG, radiologic studies, plain films, and as a result, I will admit patient. Counseling: I had a detailed discussion with the patient and/or guardian regarding: the historical points, exam findings, and any diagnostic results supporting the discharge/admit diagnosis, lab results, radiology results, the need to transfer to another facility, for higher level of care, [facility] does not immediately have the required specialist. Response to treatment: the patient's symptoms have mildly improved after treatment, and as a result, I will admit patient. ED course: Accepted for transfer to [facility] ICU for higher level of care, no toxicology here, and need for physostigmine, Vitals have improved after intubation and sedatives. . 04:16 ED course: Poison control contacted for a second time, no current recommendations. . rn 04/25 00:17 Order name: Acetaminophen; Complete Time: 01:54 rn 04/25 00:17 Order name: Basic Metabolic Panel; Complete Time: :54 rn 04/25 00:17 Order name: CBC with Diff; Complete Time: : rn 04/25 00:17 Order name: ETOH Level; Complete Time: :54 rn 04/25 00:17 Order name: Hepatic Function; Complete Time: :54 rn 04/25 00:17 Order name: PT-INR; Complete Time: : rn 04/25 00:17 Order name: Ptt, Activated; Complete Time: : rn 04/25 00:17 Order name: Salicylate; Complete Time: 02:37 rn 04/25 00:17 Order name: Urine Drug Screen; Complete Time: 04:03 rn 04/25 03:06 Order name: XRAY Chest (1 view) rn 04/25 03:08 Order name: ABG; Complete Time: 03:38 ms 04/25 04:03 Order name: Urine Dipstick--Ancillary (enter results); Complete Time: 05:35 ms 04/25 00:17 Order name: EKG; Complete Time: 00:18 rn 04/25 00:17 Order name: EKG - Nurse/Tech; Complete Time: 00:24 rn 04/25 00:17 Order name: IV Saline Lock; Complete Time: 00:24 rn 04/25 00:17 Order name: Labs collected and sent; Complete Time: 00:24 rn 04/25 00:17 Order name: Urine Dipstick-Ancillary (obtain specimen); Complete Time: 04:13 rn Administered Medications: 01:39 Drug: NS 0.9% 1000 ml Route: IV; Rate: 1000 ml; Site: left forearm; ea 02:40 Follow up: IV Status: Completed infusion aa1 02:45 Drug: NS 0.9% 1000 ml Route: IV; Rate: 1000 ml; Site: left antecubital; aa1 04:13 Follow up: IV Status: Completed infusion aa1 02:48 Drug: Etomidate 20 mg Route: IVP; Site: left antecubital; aa1 02:55 Follow up: Response: No adverse reaction; Marked relief of symptoms aa1 02:48 Drug: Succinylcholine 120 mg Route: IVP; Site: left antecubital; aa1 02:55 Follow up: Response: No adverse reaction; Marked relief of symptoms aa1 02:49 Drug: Ativan 2 mg Route: IVP; Site: left antecubital; aa1 03:00 Follow up: Response: No adverse reaction aa1 02:51 Drug: Propofol 5 mcg/kg/min Route: IV; Rate: calculated rate; Site: left antecubital; aa1 04:17 Follow up: IV Status: Infusion continued upon transfer aa1 03:22 Drug: Versed 3 mg Route: IVP; Site: right antecubital; aa1 03:45 Follow up: Response: No adverse reaction; No change in condition aa1 03:48 Drug: morphine 4 mg Route: IVP; Site: right antecubital; aa1 04:00 Follow up: Response: No adverse reaction; Marked relief of symptoms aa1 03:48 Drug: Ativan 2 mg Route: IVP; Site: right antecubital; aa1 04:00 Follow up: Response: No adverse reaction; Marked relief of symptoms aa1 03:50 Drug: Succinylcholine 80 mg Route: IVP; Site: right antecubital; aa1 04:00 Follow up: Response: No adverse reaction; Marked relief of symptoms aa1 05:45 Drug: Ativan 2 mg Route: IVP; Site: right forearm; aa1 05:58 Follow up: Response: No adverse reaction; Marked relief of symptoms aa1 05:56 Drug: D5-1/2 NS with KCl 20 mEq/L 1000 ml Route: IV; Rate: 125 ml/hr; Site: right aa1 forearm; 05:57 Follow up: IV Status: Infusion continued upon transfer aa1 Point of Care Testing: Blood Glucose: 05:49 Blood Glucose: 78 mg/dL; aa1 Ranges: Critical Glucose Levels:Adult <50 mg/dl or >400 mg/dl <40 mg/dl or >180 mg/dl Disposition: 04/25/18 04:12 Transfer ordered to [facility]. Diagnosis are Acute respiratory failure, Poisoning by other parasympatholytics [anticholinergics and antimuscarinics] and spasmolytics, intentional self-harm, Suicidal ideations. - Reason for transfer: Higher level of care. - Accepting physician is . - Condition is Fair. - Problem is new. - Symptoms have improved. Critical care time excluding procedures: 04:08 Critical care time: Bedside Care: 35 minutes, Consultation: 5 minutes. Total time: 40 rn minutes Signatures: Dispatcher [employer] Pura Mccloud RN RN aa1 Anthony Sexton MD MD rn Antunez, Elena, RN RN ea Corrections: (The following items were deleted from the chart) 06:06 04:12 04/25/2018 04:12 Transfer ordered to [facility]. Diagnosis is aa1 Acute respiratory failure; Poisoning by other parasympatholytics [anticholinergics and antimuscarinics] and spasmolytics, intentional self-harm; Suicidal ideations. Reason for transfer: Higher level of care. Accepting physician is . Condition is Fair. Problem is new. Symptoms have improved. rn
--- NOTE | 2018-04-25 04:12 | ER ---
Nurse's Notes [facility] Name: Som Clements Age: 37 yrs Sex: Male : 1980 Arrival Date: 04/25/2018 Time: 00:16 Bed 4 Private MD: Diagnosis: Acute respiratory failure;Poisoning by other parasympatholytics [anticholinergics and antimuscarinics] and spasmolytics, intentional self-harm;Suicidal ideations Presentation: 04/25 00:18 Presenting complaint: EMS states: Pt reported he took 150 tabs of Benadryl after being ea discharged from [facility]. Patient stated he did not get the help he needed and wants to . Poison control contacted by EMS. Transition of care: patient was not received from another setting of care. Onset of symptoms was April 25, 2018. Risk Assessment: Do you want to hurt yourself or someone else? Patient reports desire/thoughts of hurting themselves or someone else. Provider notified. Initial Sepsis Screen: Does the patient meet any 2 criteria? No. Patient's initial sepsis screen is negative. Does the patient have a suspected source of infection? No. Patient's initial sepsis screen is negative. Care prior to arrival: 20 G to left forearm. GCS 15, BGL 123. 00:18 Method Of Arrival: EMS: [facility] ea 00:18 Acuity: TA 2 ea Triage Assessment: 00:18 General: Appears in no apparent distress. Behavior is calm, cooperative, drowsy. Pain: ea Denies pain. EENT: No signs and/or symptoms were reported regarding the EENT system. Neuro: Level of Consciousness is awake, alert, obeys commands, Oriented to person, place, time, situation. Cardiovascular: Patient's skin is warm and dry. Respiratory: Airway is patent Respiratory effort is even, unlabored, Respiratory pattern is regular, symmetrical, Breath sounds are clear bilaterally. GI: Abdomen is non-distended. : No signs and/or symptoms were reported regarding the genitourinary system. Derm: Skin is pink, warm \T\ dry. Musculoskeletal: Circulation, motion, and sensation intact. 00:18 General: Pt reports he took 150 Benadryl, reports there is a lot of stuff going on in ea his life that makes him feel he doesn't want to live anymore. . Historical: - Allergies: 00:45 NKDA; ea - PMHx: 00:45 Anxiety; Bipolar disorder; Depression; Schizophrenia; ea - PSHx: 00:45 None; ea - Immunization history:: Adult Immunizations up to date. - Social history:: Smoking status: Patient/guardian denies using tobacco. - Ebola Screening: : No symptoms or risks identified at this time. - Family history:: not pertinent. - Hospitalizations: : Patient was recently seen at. Screenin:18 Abuse screen: Denies threats or abuse. Nutritional screening: No deficits noted. ea Tuberculosis screening: No symptoms or risk factors identified. Fall Risk None identified. Assessment: 01:38 Reassessment: Patient and/or family updated on plan of care and expected duration. Pain ea level reassessed. Pt alert, remains groggy, Ox 4. Respirations even and unlabored. Chest expansions even and symmetrical. No s/s of pain or discomfort noted at this time. 01:57 Reassessment: Pt awakened by verbal stimulus, unable to answer questions. Physician at ea bedside. Respirations remain even and unlabored. Chest expansions even and symmetrical. Pt able to follow commands. Order obtained to move pt to bed 4 for intubation. 02:30 Reassessment: Patient appears in no apparent distress at this time. Reassessment: Pt aa1 moved from bed 16 to ER bed 4 for intubation after Benadryl overdose. Neuro: Level of Consciousness is awake, listless, Pupils are PERRLA, Pt awake with eyes open. Moves extremities and nods head slowly when asked questions but unable to respond verbally.. Cardiovascular: Heart tones S1 S2 present Rhythm is sinus tachycardia. Respiratory: Airway is patent Respiratory effort is even, unlabored, shallow, Respiratory pattern is regular, symmetrical. GI: Abdomen is flat. : No signs and/or symptoms were reported regarding the genitourinary system. EENT: No signs and/or symptoms were reported regarding the EENT system. Derm: Skin is intact, is healthy with good turgor, Skin is pink, warm \T\ dry. Musculoskeletal: Capillary refill < 3 seconds. 03:00 Reassessment: Patient appears in no apparent distress at this time. Neuro: Level of aa1 Consciousness is unresponsive. Respiratory: Airway via oral intubation Respiratory pattern is regular, symmetrical. Derm: Skin is pink, warm \T\ dry. 04:19 Reassessment: spoke with Poison Control who recommends benzodiazepines and supportive bb care at this time. 04:28 Reassessment: Report called to Randy España RN at [facility]. aa1 05:00 Reassessment: Patient appears in no apparent distress at this time. No changes from aa1 previously documented assessment. Awaiting EMS for transfer. 05:30 Reassessment: Patient appears in no apparent distress at this time. No changes from aa1 previously documented assessment. [facility] present for transfer. Vital Signs: 00:18 BP 123 / 80; Pulse 102; Resp 20 S; Temp 98.7; Pulse Ox 98% on R/A; Weight 70.31 kg; ea Height 5 ft. 11 in. (180.34 cm) (M); Pain 0/10; 01:47 BP 108 / 73; Pulse 118; Resp 20 S; Pulse Ox 100% on R/A; Pain 0/10; ea 01:57 Pulse 137; Resp 20 S; Temp 98.1; Pulse Ox 99% ; ea 02:40 BP 125 / 84; Pulse 131; Resp 18; Pulse Ox 98% on R/A; aa1 03:22 BP 118 / 88; Pulse 99; Resp 18; Temp 96.5(C); Pulse Ox 100% on ETT vent; aa1 04:06 BP 140 / 96; Pulse 105; Resp 14; Temp 96.7(C); Pulse Ox 100% on ETT vent; aa1 04:29 BP 114 / 86; Pulse 102; Resp 16; Temp 96.8(C); Pulse Ox 100% on ETT vent; aa1 05:27 BP 120 / 85; Pulse 81; Resp 16; Temp 97.1(C); Pulse Ox 100% on ETT vent; aa1 00:18 Body Mass Index 21.62 (70.31 kg, 180.34 cm) ea ED Course: 00:16 Patient arrived in ED. ea 00:17 Anthony Sexton MD is Attending Physician. rn 00:18 Arm band placed on right wrist. Patient placed in an exam room, on a stretcher, on ea surveillance system monitor, on pulse oximetry. 00:18 Patient has correct armband on for positive identification. Placed in gown. Bed in low ea position. Call light in reach. Side rails up X2. Valuables inventory done. See valuables checklist. given to security. sitter at bedside. 00:20 Safety Checks: Personal items have been removed. The door is open or patient has been ea placed in a hallway bed/chair. Sitter present at this time. 00:24 Maintain EMS IV. Dressing intact. Good blood return noted. Site clean \T\ dry. Gauge \T\ payal 3 site: 20 G left FA. 00:30 Safety Checks: Personal items have been removed. The door is open or patient has been ea placed in a hallway bed/chair. Sitter present at this time. 00:35 Lily Pride RN is Primary Nurse. ea 00:44 Triage completed. ea 00:45 Safety Checks: Personal items have been removed. The door is open or patient has been ea placed in a hallway bed/chair. Sitter present at this time. 01:00 Safety Checks: Personal items have been removed. The door is open or patient has been ea placed in a hallway bed/chair. Sitter present at this time. 01:15 Safety Checks: Personal items have been removed. The door is open or patient has been ea placed in a hallway bed/chair. Sitter present at this time. 01:30 Safety Checks: Personal items have been removed. The door is open or patient has been ea placed in a hallway bed/chair. Sitter present at this time. 01:45 Safety Checks: Personal items have been removed. The door is open or patient has been ea placed in a hallway bed/chair. Sitter present at this time. 02:45 Inserted saline lock: 20 gauge in right forearm, using aseptic technique. ,using aa1 aseptic technique. by Xiomara Cordero RN. 02:48 Assisted provider with intubation using 7.5 mm ETT via oral route. ET tube secured at aa1 23cm at the teeth. Set up intubation tray. Intubated by Anthony Sexton MD Placement verified by CXR, CO2 detector w/ + color change, auscultating bilateral breath sounds, Patient tolerated well. Patient transferred, IV remains in place. 02:55 NGT: inserted 16 Fr. other orally verified placement of air over stomach, verified aa1 return of gastric contents, to intermittent suction. Returned gastric contents. Patient tolerated well. 03:05 Purdy cath inserted, using sterile technique, 16 Fr., by me, balloon inflated, to aa1 gravity drainage, other Criti-core purdy used returned clear yellow urine. Patient tolerated well. 03:21 X-ray completed. Portable x-ray completed in exam room. [email or web address] 03:25 XRAY Chest (1 view) In Process Unspecified. EDMS 03:50 Assisted provider with central line placement. Set up central line tray. Triple lumen aa1 line placed in right femoral. Line placed by Anthony Sexton MD Placement verified by blood return, Dressed with Tegaderm, Patient tolerated well. Was patient positioned to in a way to prevent air embolism? Yes. Was procedure site sterilized? Yes, with chlorhexidine. Was the site allowed to dry? Yes. Was local anesthetic and/or sedation utilized? Yes. During the procedure, did the Practitioner(s) maintain a sterile field? Yes. Were unused ports clamped during insertion? Yes. Was a 2nd qualified MD obtained after 3 unsuccessful insertion attempts? N/A. After the procedure, did the Practitioner(s) clean the site and apply a sterile dressing? Yes. Administered Medications: 01:39 Drug: NS 0.9% 1000 ml Route: IV; Rate: 1000 ml; Site: left forearm; ea 02:40 Follow up: IV Status: Completed infusion aa1 02:45 Drug: NS 0.9% 1000 ml Route: IV; Rate: 1000 ml; Site: left antecubital; aa1 04:13 Follow up: IV Status: Completed infusion aa1 02:48 Drug: Etomidate 20 mg Route: IVP; Site: left antecubital; aa1 02:55 Follow up: Response: No adverse reaction; Marked relief of symptoms aa1 02:48 Drug: Succinylcholine 120 mg Route: IVP; Site: left antecubital; aa1 02:55 Follow up: Response: No adverse reaction; Marked relief of symptoms aa1 02:49 Drug: Ativan 2 mg Route: IVP; Site: left antecubital; aa1 03:00 Follow up: Response: No adverse reaction aa1 02:51 Drug: Propofol 5 mcg/kg/min Route: IV; Rate: calculated rate; Site: left antecubital; aa1 04:17 Follow up: IV Status: Infusion continued upon transfer aa1 03:22 Drug: Versed 3 mg Route: IVP; Site: right antecubital; aa1 03:45 Follow up: Response: No adverse reaction; No change in condition aa1 03:48 Drug: morphine 4 mg Route: IVP; Site: right antecubital; aa1 04:00 Follow up: Response: No adverse reaction; Marked relief of symptoms aa1 03:48 Drug: Ativan 2 mg Route: IVP; Site: right antecubital; aa1 04:00 Follow up: Response: No adverse reaction; Marked relief of symptoms aa1 03:50 Drug: Succinylcholine 80 mg Route: IVP; Site: right antecubital; aa1 04:00 Follow up: Response: No adverse reaction; Marked relief of symptoms aa1 05:45 Drug: Ativan 2 mg Route: IVP; Site: right forearm; aa1 05:58 Follow up: Response: No adverse reaction; Marked relief of symptoms aa1 05:56 Drug: D5-1/2 NS with KCl 20 mEq/L 1000 ml Route: IV; Rate: 125 ml/hr; Site: right aa1 forearm; 05:57 Follow up: IV Status: Infusion continued upon transfer aa1 Point of Care Testing: Blood Glucose: 05:49 Blood Glucose: 78 mg/dL; aa1 Ranges: Outcome: 04:12 ER care complete, transfer ordered by . rn 06:05 Transferred by ground EMS to [facility], Transfer form completed. aa1 06:05 Condition: stable 06:06 Patient left the ED. aa1 Signatures: Dispatcher [employer] EDPura Benitez RN RN aa1 Xiomara Cordero RN RN bb Nieto, Roman, MD MD rn Poole, Kathy 1 Lily Pride RN RN ea Davies, Jonathon, RN RN [id number] Corrections: (The following items were deleted from the chart) 00:58 00:55 Arm band placed on right wrist. Patient placed in an exam room, on a stretcher, ea on surveillance system monitor, on pulse oximetry, ea 03:44 01:57 Reassessment: Pt awakened by verbal stimulus, unable to answer questions. ea Physician at bedside. Respirations remain even and unlabored. Chest expansions even and symmetrical. ea 03:47 02:00 Safety Checks: Personal items have been removed. The door is open or patient has ea been placed in a hallway bed/chair. Sitter present at this time. ea 03:47 02:15 Safety Checks: Personal items have been removed. The door is open or patient has ea been placed in a hallway bed/chair. Sitter present at this time. ea
[2018-04-25 04:37] LABS: Urine Blood TRACE (NEG); Urine Glucose NEGATIVE (NEG); Urine Protein NEGATIVE (NEG)
[2018-04-25] MEDS ORDERED: D5.45NS W/KCL 20MEQ 1,000 ML IV ONE (05:48)
--- NOTE | 2018-04-25 09:55 | RAD REPORT ---
EXAM DESCRIPTION: RAD - Chest Single View - 04/25/2018 3:25 am CLINICAL HISTORY: Intubation, respiratory distress COMPARISON: None. TECHNIQUE: AP portable chest image was obtained 0316 hours . FINDINGS: Endotracheal tube is in place T4-5 level top of the aortic arch. This is several cm above the nilsa. NG tube is curled in the stomach. No pulmonary edema or acute lung parenchymal process. N odularity lateral mid left lung field could be small granulomas. External artifact be possible as wel l. Long-term significance is doubtful. Heart and vasculature are normal. No measurable pleural effusi on and no pneumothorax. No gross bony abnormality seen. No acute aortic findings suspected. IMPRESSION: ETT and NG tube in good position.
[2018-04-25] MEDS ORDERED: SUCCINYLCHOLINE 20 MG/ML (10 ML) IV ONE (10:23)
[2018-04-25] MEDS ORDERED: ETOMIDATE 20 MG/10 ML VIAL IV ONE (10:23)
--- NOTE | 2018-04-25 10:28 | EKG ---
Test Date: 2018-04-25 Test Time: 02:21:02 Plasterer Foreman: ZHANG MEASUREMENT RESULTS: Intervals: Rate: 129 NE: 96 QRSD: 82 QT: 400 QTc: 586 [place]: P: 24 NE: 96 QRS: 9 T: 59 INTERPRETIVE STATEMENTS: Sinus tachycardia with short NE Nonspecific ST and T wave abnormality Abnormal ECG Compared to ECG 04/25/2018 00:10:53 Short NE interval now present ST (T wave) deviation now present Sinus rhythm no longer present Electronically Signed On 04-25-18 10:27:11 CDT by Sanjay Sosa
--- NOTE | 2018-04-25 10:28 | EKG ---
Test Date: 2018-04-25 Test Time: 00:10:53 Harbor Tug Captain: REECE MEASUREMENT RESULTS: Intervals: Rate: 100 [place]: 116 QRSD: 82 QT: 364 QTc: 469 [place]: P: 55 [place]: 116 QRS: 8 T: 62 INTERPRETIVE STATEMENTS: Normal sinus rhythm Normal ECG Compared to ECG 04/21/2018 12:28:30 No significant changes Electronically Signed On 04-25-18 10:27:12 CDT by Sanjay Sosa
== END 2018-04-25 06:06 | disposition short-term general hospital (02) ==
LOC: ER 00:07
PROC: 0BH17EZ Insertion of Endotracheal Airway into Trachea, Via Natural or Artificial Opening (ICD-10-PCS; principal; 2018-04-25)
PROC: 06HM33Z Insertion of Infusion Device into Right Femoral Vein, Percutaneous Approach (ICD-10-PCS; 2018-04-25)
DX: J96.00 Acute respiratory failure, unspecified whether with hypoxia or hypercapnia (principal); T45.0X2A Poisoning by antiallergic and antiemetic drugs, intentional self-harm, initial encounter; Y92.9 Unspecified place or not applicable; F32.9 Major depressive disorder, single episode, unspecified
CPT/HCPCS: 31500; 36415; 51702; 71045; 80048; 80076; 80307; 80320; 80329; 81003; 82805; 82962; 85025; 85610; 85730; 93005; 94002; 99291; J0330; J2250; J7030